=== PATIENT | male | born 1970 | race Caucasian/White ===

== ENCOUNTER 2018-03-06 09:34 | Inpatient (IN) ==
--- NOTE | 2018-03-06 09:42 | Emergency Department Note ---
Disposition Clinical Impression: Acute exacerbation of chronic obstructive airways disease Pneumonia Qualifiers: Pneumonia type: due to unspecified organism Laterality: right Lung location: lower lobe of lung Qualified Code(s): J18.1 - Lobar pneumonia, unspecified organism Disposition: Admitted As Inpatient Condition: Fair Referrals: Shaina Bridges DO [Primary Care Provider] - Forms: ED Satisfaction Letter Time of Disposition: 12:00 SOB HPI - General Chief Complaint: ED Shortness of Breath/Dyspnea Stated Complaint: CHICA,Flu like symptoms Time Seen by Provider: 03/06/18 09:42 Source: patient Mode of arrival: wheelchair Limitations: no limitations Nursing Notes Reviewed: Yes Vital Signs Reviewed: Yes - History of Present Illness Patient is a 47-year-old male with past medical history of COPD, currently takes Spiriva daily along with rescue inhalers and occasional nebulizer treatments. He states that for the past 2 weeks, he has had shortness of breath that is slowly worsening. Today, he had significantly worsening shortness of breath. He does not wear any home oxygen. Is not currently on any antibiotics or steroids. Denies any other chest pain, abdominal pain, nausea, vomiting. He does admit to subjective fevers but has not measured any fevers at home. Also admits to increased cough and sputum production. - Related Data Home Medications Medication Instructions Recorded Confirmed Albuterol Sulfate [Ventolin Hfa] 2 puff IH Q4-6H PRN 03/06/18 03/06/18 Budesonide/Formoterol 160/4.5 2 puff IH BIDR 03/06/18 03/06/18 [Symbicort 160/4.5] Guaifenesin [Mucinex] 600 mg PO Q12H PRN 03/06/18 03/06/18 Ipratropium/Albuterol Neb [Duoneb] 3 ml IH Q4-6H PRN 03/06/18 03/06/18 Nicotine Patch [Nicoderm] 1 patch TD DAILY 03/06/18 03/06/18 Tiotropium [Spiriva] 18 mcg IH DAILY 03/06/18 03/06/18 Allergies Allergy/AdvReac Type Severity Reaction Status Date / Time No Known Allergies Allergy Verified 03/06/18 12:33 All systems ED: reviewed and negative except as stated. Constitutional: Reports: fever (Subjective) Cardiovascular: Denies: chest pain Respiratory: Reports: cough, dyspnea, wheezes Gastrointestinal: Denies: abdominal pain, nausea, vomiting, diarrhea Genitourinary: Denies: urgency Integumentary: Denies: rash Neurological: Denies: headache, weakness, numbness, paresthesias Past Medical History - Past Medical History Attestation: Yes The following information was validated with the patient. Source: patient Medical history: Reports: COPD Psychiatric history: Reports: no psych history - Social History Smoking Status: Current every day smoker Smokeless Tobacco Status: No Alcohol use: Reports: occasionally Drug use: Reports: marijuana Physical Exam - General Limitations: no limitations General appearance: alert - Head Head exam: atraumatic, normocephalic, normal inspection - Eye Eye exam: Present: normal appearance, PERRL, EOMI - ENT ENT exam: normal exam, normal oropharynx, mucous membranes moist - Neck Neck exam: Present: normal inspection, full ROM, trachea midline - Chest Chest inspection: Present: normal inspection, symmetric chest wall rise - Respiratory Respiratory exam: Present: respiratory distress (mild ), wheezes (significant wheeze throughout), accessory muscle use - Cardiovascular Cardiovascular exam: Present: normal rhythm, tachycardia, normal heart sounds - Abdominal Exam Abdominal exam: Present: soft, Non-Tender. Absent: tenderness, distention, guarding, rebound, rigidity - Extremities Exam Extremities exam: Present: normal inspection, full ROM. Absent: tenderness, pedal edema - Neurological Exam Neurological exam: Present: alert, oriented X3 - Psychiatric Psychiatric exam: Present: normal affect, normal mood - Skin Skin exam: Present: warm, dry, intact, normal color Course Course Narrative: Patient was tachycardiac and satting 91% on room air. Usually does not wear any oxygen. He had mild respiratory distress with accessory muscle use, significant wheezing throughout. History and physical exam consistent with COPD exacerbation. No active chest pain at this time. We will give the patient prednisone and DuoNeb 3, also perform basic blood work and chest x-ray to assess for any pneumonia. 11:59 chest x-ray shows a possible right lower lobe pneumonia. Patient was given azithromycin. Patient was reevaluated. He is still labored, still requiring 2 L nasal cannula oxygen to keep saturation above 88%. We will admit the patient for further care at this time. Chest X-Ray 03/06/18 09:46 IMPRESSION: Probable trace right pleural effusion. There is patchy opacity in the right lung base either atelectasis or pneumonia. D/ / Wendy Cheek MD / Wendy Cheek MD Interpreting Provider: Wendy Cheek MD Vital Signs Temperature 97.7 F 03/06/18 09:38 Pulse Rate 116 03/06/18 09:38 Respiratory Rate 24 03/06/18 09:38 Blood Pressure 138/63 03/06/18 09:38 O2 Sat by Pulse Oximetry 91 03/06/18 09:38 Temperature 97.7 F 03/06/18 09:54 Pulse Rate 85 03/06/18 12:37 Respiratory Rate 18 03/06/18 12:37 Blood Pressure 136/85 03/06/18 12:37 O2 Sat by Pulse Oximetry 91 03/06/18 12:37 Oxygen Delivery Oxygen Delivery Nasal Cannula Shortness of Breath/Dyspnea - [facility] Narrative Medical decision making narrative: Patient was tachycardiac and satting 91% on room air. Usually does not wear any oxygen. He had mild respiratory distress with accessory muscle use, significant wheezing throughout. History and physical exam consistent with COPD exacerbation. No active chest pain at this time. We will give the patient prednisone and DuoNeb 3, also perform basic blood work and chest x-ray to assess for any pneumonia. 11:59 chest x-ray shows a possible right lower lobe pneumonia. Patient was given azithromycin. Patient was reevaluated. He is still labored, still requiring 2 L nasal cannula oxygen to keep saturation above 88%. We will admit the patient for further care at this time. - Medical Records Medical records reviewed: Yes I reviewed the patient's medical records. - Lab Data Lab results reviewed: Yes I reviewed the patient's lab results. Result diagrams: 03/06/18 10:03 03/06/18 10:03 Lab Results 03/06/18 03/06/18 Range/Units 10:03 10:03 WBC 14.9 H (4.3-11.1) K/mcL RBC 4.96 (4.19-5.50) M/mcL Hgb 14.8 (12.9-16.9) g/dL Hct 44.2 (37.5-50.1) % MCV 89.1 (83.0-100.0) fL MCH 29.8 (28.0-33.3) pg MCHC 33.5 (31.6-35.5) g/dL RDW 12.9 (11.5-14.5) % Plt Count 274 (140-400) K/mcL MPV 9.7 (9.4-12.4) fL Immature Gran % 0.3 (0-4) % Seg Neutrophils % 79.2 % Lymphocytes % 12.4 % Monocytes % 6.2 % Eosinophils % 1.6 % Basophils % 0.3 % Neutrophils # 11.8 H (1.6-8.9) K/mcL Lymphocytes # 1.9 (0.6-4.6) K/mcL Monocytes # 0.9 (0.0-1.3) K/mcL Eosinophils # 0.2 (0.0-0.6) K/mcL Basophils # 0.0 (0.0-0.2) K/mcL Sodium 138 (136-145) mEq/L Potassium 3.7 (3.5-5.1) mEq/L Chloride 98 (98-107) mEq/L Carbon Dioxide 33 H (23-29) mEq/L BUN 10 (6-20) mg/dL Creatinine 0.67 L (0.70-1.30) mg/dL Est GFR ( Amer) > 60 (> 60) Est GFR (Non-Af Amer) > 60 (> 60) BUN/Creatinine Ratio 15 (6-26) Glucose 155 H (70-105) mg/dL Calculated Osmolality 288 (280-300) Calcium 9.4 (8.6-10.3) mg/dL - Radiology Data Radiology results reviewed: Yes I reviewed the patient's radiology results. Chest X-Ray 03/06/18 09:46 IMPRESSION: Probable trace right pleural effusion. There is patchy opacity in the right lung base either atelectasis or pneumonia. D/ / Wendy Cheek MD / Wendy Cheek MD Interpreting Provider: Wendy Cheek MD - EKG Data EKG attestation: Yes I reviewed and interpreted this EKG. EKG results narrative: 03/06/2018 at 10:05. Normal sinus rhythm. Rate 87. PA 128. QRS 91. QTC 450. Left axis deviation. No acute ST elevation or depression. S.B.A.R. - S.B.A.R. Situation: Demographics, MOA Background: Presenting Complaint, Relevant PMH, Meds, & Allergies Assessment: Vital Signs, Course and respsone to treatment, Exam Concerns, Patient/Family Expectation, Pertinant Lab Results Recommendation: Barrier(s) to disposition, Recommendation based on pending studies, treatments, or consults S.B.A.R. Report Given to: Dr. Madrigal
[2018-03-06] MEDS ORDERED: predniSONE 20 MG TABLET PO ONE (09:47)
[2018-03-06] MEDS ORDERED: Ipratropium/Albuterol Neb 3 ML IH ONE (09:48)
[2018-03-06 10:15] LABS: Basophils % 0.3 %; Eosinophils # 0.2 K/mcL (0.0-0.6); Eosinophils % 1.6 %; Hematocrit 44.2 % (37.5-50.1); Hemoglobin 14.8 g/dL (12.9-16.9); Immature Granulocytes % 0.3 % (0-4); Lymphocytes # 1.9 K/mcL (0.6-4.6); Lymphocytes % 12.4 %; Mean Corpuscular HGB Conc 33.5 g/dL (31.6-35.5); Mean Corpuscular Hemoglobin 29.8 pg (28.0-33.3); Mean Corpuscular Volume 89.1 fL (83.0-100.0); Mean Platelet Volume 9.7 fL (9.4-12.4); Monocytes # 0.9 K/mcL (0.0-1.3); Monocytes % 6.2 %; Neutrophils # 11.8 K/mcL (1.6-8.9); Platelet Count 274 K/mcL (140-400); Red Blood Count 4.96 M/mcL (4.19-5.50); Red Cell Distribution Width 12.9 % (11.5-14.5); Segmented Neutrophils % 79.2 %
--- NOTE | 2018-03-06 10:25 | Emergency Department Note ---
Disposition Clinical Impression: Acute exacerbation of chronic obstructive airways disease Disposition: Still a Patient Forms: ED Satisfaction Letter General Adult HPI - General Chief complaint: ED Shortness of Breath/Dyspnea Stated complaint: CHICA,Flu like symptoms Time Seen by Provider: 03/06/18 09:42 Source: patient Mode of arrival: wheelchair Limitations: no limitations - History of Present Illness Pain Scale: 6 - Related Data Previous Rx's Medication Instructions Recorded Benzonatate [Tessalon] 200 mg PO TID PRN #15 capsule 03/15/16 Naproxen [EC-Naprosyn] 500 mg PO BID #10 tablet. 03/15/16 Allergies Allergy/AdvReac Type Severity Reaction Status Date / Time No Known Allergies Allergy Verified 03/15/16 16:54 Constitutional: Reports: fever (Subjective) Cardiovascular: Denies: chest pain Respiratory: Reports: cough, dyspnea, wheezes Gastrointestinal: Denies: abdominal pain, nausea, vomiting, diarrhea Genitourinary: Denies: urgency Integumentary: Denies: rash Neurological: Denies: headache, weakness, numbness, paresthesias Past Medical History - Past Medical History Medical history: Reports: COPD Psychiatric history: Reports: no psych history - Social History Smoking Status: Current every day smoker Smokeless Tobacco Status: No Alcohol use: Reports: occasionally Drug use: Reports: marijuana Physical Exam - General Limitations: no limitations General appearance: alert Course Vital Signs Temperature 97.7 F 03/06/18 09:38 Pulse Rate 116 03/06/18 09:38 Respiratory Rate 24 03/06/18 09:38 Blood Pressure 138/63 03/06/18 09:38 O2 Sat by Pulse Oximetry 91 03/06/18 09:38 Temperature 97.7 F 03/06/18 09:54 Pulse Rate 92 03/06/18 10:14 Respiratory Rate 24 03/06/18 10:14 Blood Pressure 139/85 03/06/18 10:14 O2 Sat by Pulse Oximetry 97 03/06/18 10:14 Oxygen Delivery Oxygen Delivery Nasal Cannula Attestation Statement - Attestation Attestation: I examined this patient and my medical decision-making was reviewed with the Resident Physician. I agree with the documented findings, disposition and treatment plan as described except to the extent set forth below. 47 year old male presnte to the eD with history of CoPD and states that he has been feeling flui like symptoms and more dyspniec. Trisha states that he does not wear supplemntal oxygen at home and that he has notied that hew as 90-91% on RA and appears dyspneic on exam while speaking. WE will do duonebs and steroids and obs in the deparnvne with cardiopulonary workup and the walk test to assess for disposition
[2018-03-06 10:34] LABS: BUN/Creatinine Ratio 15 (6-26); Blood Urea Nitrogen 10 mg/dL (6-20); Calcium 9.4 mg/dL (8.6-10.3); Carbon Dioxide 33 mEq/L (23-29); Chloride 98 mEq/L (98-107); Glucose 155 mg/dL (70-105); Osmolality,Calculated 288 (280-300); Potassium 3.7 mEq/L (3.5-5.1); Sodium 138 mEq/L (136-145); eGFR For African Americans > 60 (> 60); eGFR For Non-African Americans > 60 (> 60)
[2018-03-06] MEDS ORDERED: Azithromycin 500 MG in D5% in Water 250 ML IVPB ONE (11:48)
[2018-03-06] MEDS ORDERED: 0.9 % Sodium Chloride 1,000 ML IVC ONE (11:48)
[2018-03-06] MEDS ORDERED: Naloxone 0.4 MG/ML INJ IVP PRN (13:33)
[2018-03-06] MEDS ORDERED: Acetaminophen 325 MG TABLET PO PRN (13:33)
[2018-03-06] MEDS ORDERED: Benzonatate 100 MG CAPSULE PO PRN (13:43)
[2018-03-06] MEDS ORDERED: Ondansetron 4 MG/2 ML VIAL IVP PRN (14:14)
--- NOTE | 2018-03-06 14:14 | Internal Med History&Physical ---
<Vince Chi [place] - Last Filed: 03/06/18 15:01> Date of Encounter: 03/06/18 Time of Encounter: 12:30 Internal Medicine - H&P: HPI Chief complaint: SOB/Dyspnea Admitted From: Emergency Dept Plans for Post Hospital Care: Home History of present illness: Mr. Andino is a 47 year old male w/PMH of COPD who presents from the ED w/CC of SOB and dyspnea for the past two weeks that has become progressively worse. Pt. reports associated cough w/yellow/green sputum, fever, and diarrhea but denies nausea, vomiting, CP, changes in vision, headache, palpitations, abdominal pain , constipation, dizziness, lightheadedness, pre-syncope, or syncope. Significant COB that is worse w/exertion. Uses inhalers for COPD but denies use of home O2. Reports taking steroids in the past but denies current abx or steroids for his COPD. Past Med Surg Social Fam HX - Past Medical History Source: patient, old records reviewed, obtained from family Medical history: COPD Psychiatric history: no psych history - Social History Smoking Status: Current every day smoker Packs per day: 1/2 PPD Smokeless Tobacco Status: No Alcohol use: occasionally Drug use: marijuana Current living situation: Home Activity Level: Independent ambulation Recent Out of Country Travel Within the Last 8 Weeks: No Exposure or Possible Exposure to Illness During Travel: No - Family History Father Race: Family Member Ethnicity: Non- Living Status: (49) Age at : 49 Cause of : [place] Hx Family Cardiac Disorders: Yes ([place]) Hx Family Psychosocial Disorders: Yes (ETOH abuse) Mother Age: 73 Race: Family Member Ethnicity: Non- Living Status: Still Living Hx Family Cardiac Disorders: Yes (CVA x4) Hx Family Endocrine Disorder: Yes (DM) Hx Family Neurologic Disorders: Yes (CVA, Seizures) Brother Race: Family Member Ethnicity: Non- Living Status: Still Living Hx Family Medical Disorders: No Sister Race: Family Member Ethnicity: Non- Living Status: Still Living Hx Family Musculoskeletal Disorders: Yes (Carpal tunnel syndrome) Internal Medicine - H&P: Meds Albuterol Sulfate [Ventolin Hfa] 2 puff IH Q4-6H PRN 03/06/18 [History] Budesonide/Formoterol 160/4.5 [Symbicort 160/4.5] 2 puff IH BIDR 03/06/18 [ History] Guaifenesin [Mucinex] 600 mg PO Q12H PRN 03/06/18 [History] Ipratropium/Albuterol Neb [Duoneb] 3 ml IH Q4-6H PRN 03/06/18 [History] Nicotine Patch [Nicoderm] 1 patch TD DAILY 03/06/18 [History] Tiotropium [Spiriva] 18 mcg IH DAILY 03/06/18 [History] 3 Allergy/AdvReac Type Severity Reaction Status Date / Time No Known Allergies Allergy Verified 03/06/18 12:33 All Systems PM: A 10-system review of systems was performed and is negative for pertinent findings except as documented above in the HPI. - Constitutional Constitutional: as per HPI, fever(s), no chills, no night sweats - EENT Eyes: no change in vision, no discharge, no pain, no photophobia Ears: no ear discharge, no ear pain, no tinnitus Nose, mouth and throat: no dysphagia, no nasal discharge, no neck pain, no sore throat - Breasts Breasts: as per HPI - Cardiovascular Cardiovascular ROS IM: as per HPI, dyspnea, dyspnea on exertion, no chest pain, no diaphoresis, no lightheadedness, no palpitations, no syncope - Respiratory Respiratory: as per HPI, cough (W/yellow/green sputum production), dyspnea, dyspnea on exertion, wheezing, change in phlegm color, no excessive phlegm production - Gastrointestinal Gastrointestinal: as per HPI, diarrhea, no abdominal pain, no hematemesis, no hematochezia, no melena, no nausea, no vomiting - Genitourinary Genitourinary ROS male: as per HPI - Musculoskeletal Musculoskeletal ROS IM: no numbness, no tingling - Integumentary Integumentary IM: no rash, no unusual bruising - Neurological Neurological ROS: no confusion, no convulsions, no focal weakness, no numbness, no tingling, no tremor(s) - Psychiatric Psychiatric: as per HPI - Endocrine Endocrine IM: as per HPI - Hematologic/Lymphatic Hematologic/Lymphatic: no easy bruising - Allergic/Immunologic Allergic/Immunologic: as per HPI - Constitutional Vitals: Temp Pulse Resp BP Pulse Ox 98.9 F 99 18 132/86 93 03/06/18 13:48 03/06/18 13:48 03/06/18 13:48 03/06/18 13:48 03/06/18 13:48 General appearance: Present: cooperative, mild distress (Respiratory), A&O X 3, pleasant, underweight, answers questions appropriately - Head Head exam: Present: atraumatic, normocephalic - Eye Eye exam: Present: PERRL, conjuntiva pink, sclera anicteric Pupils: Present: PERRL - ENT ENT exam: Present: normal exam - Neck Neck exam general surgery: Present: normal inspection, supple, trachea midline. Absent: lymphadenopathy - Respiratory Respiratory exam: Present: accessory muscle use, decreased breath sounds, wheezes - Cardiovascular Cardiovascular exam: Present: RRR, +S1, +S2. Absent: diastolic murmur, gallop, rubs, systolic murmur - GI/Abdominal GI/Abdominal exam: Present: normal bowel sounds, soft, no peritoneal signs. Absent: distended, tenderness - Rectal Rectal exam: Present: deferred - Additional comments: exam deferred. - Extremities Exam Extremities exam: Present: warm, radial pulses palpable and symmetrical. Absent : calf tenderness, cyanotic, pedal edema - Back Exam Back exam: Present: normal inspection - Neurological Exam Neurological exam: Present: CN II-XII intact, oriented X3, no focal deficits. Absent: pronater drift, facial droop, speech deficit - Psychiatric Psychiatric exam: Present: normal affect, normal mood - Skin Skin exam: Present: dry, intact Internal Med - H&P Results - Labs CBC & Chem 7: 03/06/18 10:03 03/06/18 10:03 - EKG Data EKG shows normal: sinus rhythm - EKG Data Prior EKG available for review: yes EKG comments: 03/06/18 14:29 EKG dated 03/15/16 shows sinus rhythm with marked left axis deviation and possible right ventricular conduction delay. EKG dated 03/06/18 shows sinus rhythm with occasional supraventricular premature complexes, marked left axis deviation, possible right ventricular conduction delay. - Diagnostic Studies Chest x-ray Additional comments: Impressions Chest X-Ray 03/06/18 09:46 IMPRESSION: Probable trace right pleural effusion. There is patchy opacity in the right lung base either atelectasis or pneumonia. D/ / Wendy Cheek MD / Wendy Cheek MD Interpreting Provider: Wendy Cheek MD - Assessment and plan (1) Pneumonia Current Visit: Yes Status: Acute Assessment and plan: Acute CAP. Pt. denies any recent hospitalization. Reports feeling sick for two weeks and becoming progressively worse. Fever, cough w/yellow/green sputum, and diarrhea. WBC of 14.9 on admission. CXR today shows probable trace right pleural effusion. Patchy opacity in the right lung base either atelectasis or pneumonia. IVPB azithromycin 500 mg daily and ceftriaxone 2,000 mg daily for bronchitis and pneumonia infection coverage. Blood cultures 2. Sputum culture. Respiratory infection panel. Legionella and strep pneumoniae antigens ordered. DuoNeb's every 4 scheduled. Tessalon 200 mg 3 times a day for cough. Supplemental O2 with titration and SPO2 monitoring. Pt. discussed w/ Dr. Madrigal who agrees w/plan of care. Pt. is high risk for further morbidity and infection d/t current sepsis criteria, sx for two weeks, complication of acute exacerbation of COPD, and risk factor of current tobacco abuse. Inpatient. Qualifiers: Pneumonia type: due to unspecified organism Laterality: right Lung location: lower lobe of lung Qualified Code(s): J18.1 - Lobar pneumonia, unspecified organism (2) Sepsis Current Visit: Yes Status: Acute Assessment and plan: Acute sepsis criteria w/WBC of 14.9, HR of 92, RR of 24, and suspected pneumonia per CXR. Patient received 1 L 0.9 NS bolus in the ED to be continued with 100 mL's per hour. Lactic acid ordered. Blood cultures x2. Sputum culture ordered. Respiratory infection panel ordered. Legionella and strep pneumoniae antigens ordered. Tylenol 650 mg Q6HR PRN for fever/pain. IVPB azithromycin 500 mg daily with IVPB ceftriaxone 2,000 mg daily for infection coverage. Will adjust abx coverage based on culture and panel results. Monitor lactic acid and f/u labs. Qualifiers: Sepsis type: sepsis due to unspecified organism Qualified Code(s): A41.9 - Sepsis, unspecified organism (3) Acute exacerbation of chronic obstructive airways disease Current Visit: Yes Status: Acute Assessment and plan: Acute exacerbation of COPD. Hx of COPD. Current smoker who smokes 1/2 PPD. Pt. reports use of inhalers but denies home O2. Solu-Medrol 40 mg Q8. DuoNebs Q4HR scheduled. Supplemental O2 w/titration and SpO2 monitoring. IVPB azithromycin 500 mg daily for bronchitis infection coverage. (4) Cough Current Visit: Yes Status: Acute Assessment and plan: Acute cough for the past 2 weeks with yellow/green sputum production. Sputum culture ordered. CXR today indicative for pneumonia. Tessalon 200 mg 3 times a day for cough. IVPB azithromycin and ceftriaxone for infection coverage. Supplemental O2 with titration and SPO2 monitoring. DuoNebs Q4HR scheduled. (5) Hyperglycemia Current Visit: Yes Status: Acute Assessment and plan: Acute hyperglycemia w/BG of 155 on admission. Pt. denies DM hx or use of oral/ insulin. A1c in a.m. labs. Will monitor. (6) Tobacco abuse Current Visit: Yes Status: Chronic Assessment and plan: Hx of chronic tobacco abuse. Currently smokes 1/2 PPD. Will continue pts. 21 mg nicotine patch daily. (7) DVT prophylaxis Current Visit: Yes Status: Acute Assessment and plan: enox 40 mg SQ 0600 for DVT prophylaxis. Monitor pt. for signs of bleeding. (8) SARABJIT (obstructive sleep apnea) Current Visit: Yes Status: Chronic Assessment and plan: Hx of SARABJIT. CPAP ordered HS. - Time Spent With Patient Total time spent is greater than 50% in coordination of care (as documented) at patient's floor/unit and/or counseling patient: Greater than 35 minutes <Manuel Madrigal - Last Filed: 03/06/18 19:45> Date of Encounter: 03/06/18 Internal Medicine - H&P: HPI History of present illness: Mr. Andino is a 47 year old male All Systems PM: A 10-system review of systems was performed and is negative for pertinent findings except as documented above in the HPI. - Constitutional Vitals: Temp Pulse Resp BP Pulse Ox 98.3 F 80 16 124/77 96 03/06/18 18:58 03/06/18 18:58 03/06/18 18:58 03/06/18 18:58 03/06/18 18:58 Internal Med - H&P Results - Labs CBC & Chem 7: 03/06/18 10:03 03/06/18 10:03 - ABG Interpretation ABG results: 03/06/18 17:58 ABG pH 7.29 L ABG pCO2 78 H* ABG pO2 120 H ABG HCO3 37 H ABG Total CO2 40 H ABG O2 Saturation 98 ABG Base Excess 7 H - Attending Attestation Discussed with BRICE and agree with assessment and plan Continue IV antibiotics for community acquired pneumonia Patient with diffuse expiratory wheezing on exam so we will continue Solu- Medrol for COPD exacerbation - Assessment and plan (1) Acute exacerbation of chronic obstructive airways disease Current Visit: Yes Status: Acute (2) Pneumonia Current Visit: Yes Status: Acute Qualifiers: Pneumonia type: due to unspecified organism Laterality: right Lung location: lower lobe of lung Qualified Code(s): J18.1 - Lobar pneumonia, unspecified organism (3) DVT prophylaxis Current Visit: Yes Status: Acute (4) Hyperglycemia Current Visit: Yes Status: Acute (5) Tobacco abuse Current Visit: Yes Status: Chronic (6) Cough Current Visit: Yes Status: Acute (7) Sepsis Current Visit: Yes Status: Acute Qualifiers: Sepsis type: sepsis due to unspecified organism Qualified Code(s): A41.9 - Sepsis, unspecified organism (8) SARABJIT (obstructive sleep apnea) Current Visit: Yes Status: Chronic - Time Spent With Patient Total time spent is greater than 50% in coordination of care (as documented) at patient's floor/unit and/or counseling patient:
[2018-03-06] MEDS: 0.9 % Sodium Chloride 1,000 ML IVC SCH (14:31)
[2018-03-06] MEDS: Ipratropium/Albuterol Neb 3 ML IH SCH ×3 (15:37→23:39)
[2018-03-06 15:49] LABS: Parainfluenza Virus 3 ***DETECTED*** (Not Detect)
[2018-03-06 15:50] LABS: Adenovirus Not Detected (Not Detect); Bordetella Pertussis Not Detected (Not Detect); Chlamydophila pneumoniae Not Detected (Not Detect); Coronavirus 229E Not Detected (Not Detect); Coronavirus HKU1 Not Detected (Not Detect); Coronavirus NL63 Not Detected (Not Detect); Coronavirus OC43 Not Detected (Not Detect); Human Metapneumovirus Not Detected (Not Detect); Human Rhinovirus/Enterovirus Not Detected (Not Detect); Influenza A Subtype 2009 H1 Not Detected (Not Detect); Influenza A Untypeable Not Detected (Not Detect); Influenza B Not Detected (Not Detect); Mycoplasma pneumoniae Not Detected (Not Detect); Parainfluenza Virus 1 Not Detected (Not Detect); Parainfluenza Virus 2 Not Detected (Not Detect); Parainfluenza Virus 4 Not Detected (Not Detect); Respiratory Syncytial Virus Not Detected (Not Detect)
[2018-03-06] MEDS: Nicotine 21 MG PATCH.TD24 TD SCH (17:25)
[2018-03-06] MEDS: MethylPREDNISolone 40 MG/ML VIAL IVP SCH (17:25)
[2018-03-06] MEDS: cefTRIAXone 2,000 MG in Water for inj. (sterile) 20 ML 20 ML IVP SCH (17:25)
[2018-03-06 18:01] LABS: ABG Base Excess 7 mEq/L (-2 to 3); ABG HCO3 37 mEq/L (21-27); ABG Oxygen Saturation 98 % (95-98); ABG PCO2 78 mmHg (35-45); ABG PH 7.29 pH Units (7.32-7.45); ABG PO2 120 mmHg (85-104); ABG TCO2 40 mEq/L (20-26)
[2018-03-06] MEDS: Budesonide/Formoterol 160/4.5 MDI IH SCH (20:08)
[2018-03-06 23:03] LABS: Bilirubin,Urine Negative (Negative); Blood,Urine Negative (Negative); Clarity,Urine Clear (Clear); Color,Urine Yellow (Yellow); Glucose,Urine (UA) 250 mg/dL (Normal); Ketones,Urine Negative (Negative); Leukocyte Esterase,Urine Negative (Negative); Nitrite,Urine Negative (Negative); Protein,Urine Trace mg/dL (Neg-Trace); Specific Gravity,Urine 1.023 (1.010-1.025); Urobilinogen,Urine Normal (Normal)
[2018-03-06 23:06] LABS: Bacteria,Urine None Seen per hpf (None-Few); Hyaline Casts,Urine None Seen per lpf (None-Few); RBC,Urine 0-3 per hpf (0-3); Squamous Epithelial Cell,Urine Many per lpf (None-Few)
[2018-03-07] MEDS: MethylPREDNISolone 40 MG/ML VIAL IVP SCH ×3 (00:12→16:10)
[2018-03-07] MEDS: 0.9 % Sodium Chloride 1,000 ML IVC SCH ×3 (01:24→21:57)
[2018-03-07] MEDS: Ipratropium/Albuterol Neb 3 ML IH SCH ×6 (03:15→23:01)
[2018-03-07 05:54] LABS: Basophils % 0.1 %; Hematocrit 40.4 % (37.5-50.1); Immature Granulocytes % 0.8 % (0-4); Lymphocytes % 8.8 %; Mean Corpuscular HGB Conc 31.7 g/dL (31.6-35.5); Mean Corpuscular Hemoglobin 28.8 pg (28.0-33.3); Mean Corpuscular Volume 90.8 fL (83.0-100.0); Monocytes # 0.3 K/mcL (0.0-1.3); Monocytes % 2.6 %; Neutrophils # 9.5 K/mcL (1.6-8.9); Platelet Count 275 K/mcL (140-400); Red Blood Count 4.45 M/mcL (4.19-5.50); Segmented Neutrophils % 87.7 %
[2018-03-07 06:00] LABS: Hemoglobin 12.8 g/dL (12.9-16.9)
[2018-03-07] MEDS: *HR* Enoxaparin 40 MG/0.4 ML SYRINGE SQ SCH (06:01)
[2018-03-07 06:15] LABS: Alanine Aminotransferase 29 Units/L (7-52); Albumin 3.4 g/dL (3.5-5.7); Albumin/Globulin Ratio 1.3 (1.1-2.2); Alkaline Phosphatase 107 Units/L (34-104); Aspartate Amino Transferase 17 Units/L (13-39); BUN/Creatinine Ratio 16 (6-26); Bilirubin,Total 0.2 mg/dL (0.3-1.0); Blood Urea Nitrogen 10 mg/dL (6-20); Carbon Dioxide 32 mEq/L (23-29); Chloride 101 mEq/L (98-107); Chol/HDL Ratio 2.9 (0-4.9); Cholesterol 117 mg/dL (< 200); Globulin 2.7 g/dL (2.4-3.5); Glucose 168 mg/dL (70-105); HDL Cholesterol 41 mg/dL (40-59); LDL Cholesterol,Calculated 60 mg/dL (0-99); Magnesium 1.9 mg/dL (1.6-2.6); Osmolality,Calculated 287 (280-300); Potassium 4.4 mEq/L (3.5-5.1); Sodium 137 mEq/L (136-145); Total Protein 6.1 g/dL (6.4-8.9); Triglycerides 78 mg/dL (< 150); eGFR For African Americans > 60 (> 60); eGFR For Non-African Americans > 60 (> 60)
[2018-03-07] MEDS: Budesonide/Formoterol 160/4.5 MDI IH SCH ×2 (07:32→19:27)
[2018-03-07] MEDS: Tiotropium 18 MCG inhalation IH SCH (07:35)
[2018-03-07] MEDS ORDERED: Nicotine 21 MG PATCH.TD24 TD SCH (09:00)
[2018-03-07] MEDS: Nicotine 21 MG PATCH.TD24 TD SCH (09:51)
[2018-03-07] MEDS: Loratadine 10 MG TABLET PO SCH (12:09)
[2018-03-07 12:55] LABS: ABG Base Excess 9 mEq/L (-2 to 3); ABG HCO3 38 mEq/L (21-27); ABG Oxygen Saturation 96 % (95-98); ABG PCO2 73 mmHg (35-45); ABG PH 7.32 pH Units (7.32-7.45); ABG PO2 93 mmHg (85-104); ABG TCO2 40 mEq/L (20-26)
[2018-03-07] MEDS: Acetylcysteine 10% 2 ML INHSOL IH SCH ×3 (12:57→19:28)
[2018-03-07] MEDS: cefTRIAXone 2,000 MG in Water for inj. (sterile) 20 ML 20 ML IVP SCH (16:09)
--- NOTE | 2018-03-07 17:08 | Internal Med Progress Note ---
Date of Encounter: 03/07/18 Time of Encounter: 10:17 - Assessment and plan (1) Acute respiratory failure with hypercapnia Current Visit: Yes Status: Acute Assessment and plan: Continue Bipap for now. Repeat ABG. Treat COPD and pneumonia as per below. (2) Acute exacerbation of chronic obstructive airways disease Current Visit: Yes Status: Acute Assessment and plan: Acute exacerbation of COPD. Current smoker who smokes 1/2 PPD. Continue solumedrol 40 mg IV Q8H. Continue DuoNebs Q4H scheduled. Continue supplemental O2 w/titration and SpO2 monitoring. May use Bipap for hypercapnia. Continue IVPB azithromycin 500 mg QD and IV rocephin for pneumonia as per below. Added claritin, inhaled mucomyst, guaifenesin, incentive spirometer, and up to chair TID with turn cough and deep breath. Continue to monitor closely for any decompensation. (3) Pneumonia Current Visit: Yes Status: Acute Assessment and plan: Continue IV azithromycin and IV rocephin. Qualifiers: Pneumonia type: due to unspecified organism Laterality: right Lung location: lower lobe of lung Qualified Code(s): J18.1 - Lobar pneumonia, unspecified organism (4) DVT prophylaxis Current Visit: Yes Status: Acute Assessment and plan: Continue lovenox 40 mg SQ 0600 for DVT prophylaxis. (5) Hyperglycemia Current Visit: Yes Status: Acute Assessment and plan: Continue to monitor. (6) Tobacco abuse Current Visit: Yes Status: Chronic Assessment and plan: Counselled on smoking cessation for 5 minutes today. He is interested in quitting. Continue nicotine transdermal 21 mg QD. (7) Cough Current Visit: Yes Status: Acute Assessment and plan: Improved. Treating COPD and pneumonia as per above. (8) Sepsis Current Visit: Yes Status: Acute Assessment and plan: Resolved. Continue IV azithromycin and IV rocephin. Qualifiers: Sepsis type: sepsis due to unspecified organism Qualified Code(s): A41.9 - Sepsis, unspecified organism (9) SARABJIT (obstructive sleep apnea) Current Visit: Yes Status: Chronic Assessment and plan: Continue CPAP QHS. - Time Spent With Patient Total time spent is greater than 50% in coordination of care (as documented) at patient's floor/unit and/or counseling patient: less than 15 minutes - Subjective Interval history: Patient had no acute events overnight. Patient rounded on with nurse. Patient states that breathing is much better. He states that he is about 85% back to baseline respiratory status. He still has some cough and mucus production. He was on Bipap this AM for hypercapnia. He tolerated well. Will repeat ABG. We will continue to treat COPD exacerbation and suspected pneumonia. Patient denies chest pain, fever, chills, nausea, vomiting, or diarrhea. He has no complaints at this time. - Constitutional Vitals: Temp Pulse Resp BP Pulse Ox 98 F 79 16 143/81 99 03/07/18 16:14 03/07/18 16:14 03/07/18 16:18 03/07/18 16:14 03/07/18 16:18 General appearance: Present: cooperative, A&O X 3, pleasant, no acute distress, underweight, answers questions appropriately - Respiratory Respiratory exam: Absent: accessory muscle use, rales, rhonchi, wheezes Additional comments: Mildly labored WOB, coarse breath sounds bilaterally with intermittent expiratory wheezing - Cardiovascular Cardiovascular exam: Present: RRR, +S1, +S2. Absent: diastolic murmur, gallop, rubs, systolic murmur - GI/Abdominal GI/Abdominal exam: Present: normal bowel sounds, soft. Absent: distended, hepatomegaly, mass, splenomegaly, tenderness - Psychiatric Psychiatric exam: Present: normal affect, normal mood. Absent: agitated, anxious, depressed - Skin Skin exam: Present: dry, intact, warm. Absent: cyanosis, rash Internal Medicine: Result - Labs CBC & Chem 7: 03/07/18 05:14 03/07/18 05:14 Labs: Short CBC 03/07/18 Range/Units 05:14 WBC 10.9 (4.3-11.1) K/mcL Hgb 12.8 L D (12.9-16.9) g/dL Hct 40.4 (37.5-50.1) % Plt Count 275 (140-400) K/mcL Neutrophils # 9.5 H (1.6-8.9) K/mcL BMP 03/07/18 05:14 Sodium 137 Potassium 4.4 Chloride 101 Carbon Dioxide 32 H BUN 10 Creatinine 0.63 L Glucose 168 H Calcium 9.0 Liver Function 03/07/18 Range/Units 05:14 Total Bilirubin 0.2 L (0.3-1.0) mg/dL AST 17 (13-39) Units/L ALT 29 (7-52) Units/L Alkaline Phosphatase 107 H (34-104) Units/L Albumin 3.4 L (3.5-5.7) g/dL Urine 03/06/18 Range/Units 22:53 Urine Color Yellow (Yellow) Urine Clarity Clear (Clear) Urine pH 6.0 (5.0-8.0) pH Units Ur Specific Simon 1.023 (1.010-1.025) Urine Protein Trace (Neg-Trace) mg/dL Urine Glucose (UA) 250 H (Normal) mg/dL - ABG Interpretation ABG results: ABG ABG pH 7.32 pH Units (7.32-7.45) 03/07/18 12:42 ABG pCO2 73 mmHg (35-45) H* 03/07/18 12:42 ABG pO2 93 mmHg (85-104) 03/07/18 12:42 ABG O2 Saturation 96 % (95-98) 03/07/18 12:42 Consult Discharge Plan - Plan Referrals: Shaina Bridges DO [Primary Care Provider] -
[2018-03-08] MEDS ORDERED: Dextrose Gel 15 GM/37.5 ML TUBE PO PRN ×2 (00:02)
[2018-03-08] MEDS ORDERED: D5% in Water 1,000 ML IVC PRN (00:02)
[2018-03-08] MEDS ORDERED: *HR* Dextrose 50 % in Water (Syg) 50 ML SYRINGE IVP PRN (00:02)
[2018-03-08] MEDS: MethylPREDNISolone 40 MG/ML VIAL IVP SCH ×3 (00:41→16:10)
[2018-03-08] MEDS: Insulin LISPRO 300 UNITS/3 ML VIAL SQ SCH ×5 (00:41→23:50)
[2018-03-08] MEDS: Acetylcysteine 10% 2 ML INHSOL IH SCH ×4 (03:53→23:15)
[2018-03-08] MEDS: Ipratropium/Albuterol Neb 3 ML IH SCH ×6 (03:53→23:15)
[2018-03-08 05:03] LABS: Basophils % 0.1 %; Hematocrit 37.7 % (37.5-50.1); Hemoglobin 12.4 g/dL (12.9-16.9); Immature Granulocytes % 1.6 % (0-4); Lymphocytes # 1.1 K/mcL (0.6-4.6); Lymphocytes % 7.9 %; Mean Corpuscular HGB Conc 32.9 g/dL (31.6-35.5); Mean Corpuscular Hemoglobin 29.7 pg (28.0-33.3); Mean Corpuscular Volume 90.2 fL (83.0-100.0); Mean Platelet Volume 9.5 fL (9.4-12.4); Monocytes # 0.4 K/mcL (0.0-1.3); Monocytes % 2.7 %; Neutrophils # 12.3 K/mcL (1.6-8.9); Platelet Count 298 K/mcL (140-400); Red Blood Count 4.18 M/mcL (4.19-5.50); Red Cell Distribution Width 12.9 % (11.5-14.5); Segmented Neutrophils % 87.7 %
[2018-03-08 05:24] LABS: Alanine Aminotransferase 38 Units/L (7-52); Albumin 3.2 g/dL (3.5-5.7); Albumin/Globulin Ratio 1.2 (1.1-2.2); Alkaline Phosphatase 96 Units/L (34-104); Aspartate Amino Transferase 27 Units/L (13-39); BUN/Creatinine Ratio 17 (6-26); Bilirubin,Total 0.2 mg/dL (0.3-1.0); Blood Urea Nitrogen 12 mg/dL (6-20); Carbon Dioxide 32 mEq/L (23-29); Chloride 99 mEq/L (98-107); Globulin 2.7 g/dL (2.4-3.5); Glucose 171 mg/dL (70-105); Osmolality,Calculated 284 (280-300); Potassium 4.3 mEq/L (3.5-5.1); Sodium 135 mEq/L (136-145); Total Protein 5.9 g/dL (6.4-8.9); eGFR For African Americans > 60 (> 60); eGFR For Non-African Americans > 60 (> 60)
[2018-03-08] MEDS: *HR* Enoxaparin 40 MG/0.4 ML SYRINGE SQ SCH (06:09)
[2018-03-08] MEDS: Budesonide/Formoterol 160/4.5 MDI IH SCH ×2 (07:50→19:55)
[2018-03-08] MEDS: Tiotropium 18 MCG inhalation IH SCH (07:53)
[2018-03-08] MEDS: Nicotine 21 MG PATCH.TD24 TD SCH (09:35)
[2018-03-08] MEDS: Loratadine 10 MG TABLET PO SCH (09:36)
[2018-03-08 10:39] LABS: Estimated Average Glucose 143 mg/dl; Hemoglobin A1C 6.6 %
[2018-03-08 10:52] LABS: ABG Base Excess 11 mEq/L (-2 to 3); ABG HCO3 38 mEq/L (21-27); ABG Oxygen Saturation 97 % (95-98); ABG PCO2 61 mmHg (35-45); ABG PH 7.41 pH Units (7.32-7.45); ABG PO2 99 mmHg (85-104); ABG TCO2 40 mEq/L (20-26)
--- NOTE | 2018-03-08 13:13 | Electrocardiograph Report ---
[place] [address] Test Date: 2018-03-06 Pat Name: Kolton Andino Department: 103 Room: 3B37 Gender: M [employer]: : 1970 Requested By: Lg Live Order Number: [id number] Reading MD: Micah Hopper Measurements Intervals Bernice Rate: 87 P: 83 WY: 128 QRS: -71 QRSD: 91 T: 75 QT: 370 QTc: 415 Interpretive Statements SINUS RHYTHM WITH OCCASIONAL SUPRAVENTRICULAR PREMATURE COMPLEXES MARKED LEFT AXIS DEVIATION Electronically Signed On 03-08-2018 9:11:05 EDT by Micah Hopper
[2018-03-08] MEDS: cefTRIAXone 2,000 MG in Water for inj. (sterile) 20 ML 20 ML IVP SCH (16:08)
[2018-03-08] MEDS: 0.9 % Sodium Chloride 1,000 ML IVC SCH (16:11)
--- NOTE | 2018-03-08 23:51 | Internal Med Progress Note ---
Date of Encounter: 03/08/18 Time of Encounter: 10:47 - Assessment and plan (1) Acute respiratory failure with hypercapnia Current Visit: Yes Status: Acute Assessment and plan: CO2 improved on ABG today. Discontinue Bipap. Treat COPD and pneumonia as per below. (2) Acute exacerbation of chronic obstructive airways disease Current Visit: Yes Status: Acute Assessment and plan: Acute exacerbation of COPD. Current smoker who smokes 1/2 PPD. Counselled on smoking cessation again today. Continue solumedrol 40 mg IV Q8H; will consider starting taper tomorrow if continues to improve. Continue DuoNebs Q4H scheduled. Continue supplemental O2 w/titration and SpO2 monitoring. Continue IVPB azithromycin 500 mg QD and IV rocephin for pneumonia as per below. Continue claritin, inhaled mucomyst, guaifenesin, incentive spirometer, and up to chair TID with turn cough and deep breath. Continue to monitor closely for any decompensation. (3) Pneumonia Current Visit: Yes Status: Acute Assessment and plan: Continue IV azithromycin and IV rocephin. Qualifiers: Pneumonia type: due to unspecified organism Laterality: right Lung location: lower lobe of lung Qualified Code(s): J18.1 - Lobar pneumonia, unspecified organism (4) DVT prophylaxis Current Visit: Yes Status: Acute Assessment and plan: Continue lovenox 40 mg SQ 0600 for DVT prophylaxis. (5) Hyperglycemia Current Visit: Yes Status: Acute Assessment and plan: Secondary to steroids. Continue to monitor. (6) Tobacco abuse Current Visit: Yes Status: Chronic Assessment and plan: Counselled on smoking cessation for 5 minutes today. He is interested in quitting. Continue nicotine transdermal 21 mg QD. (7) Cough Current Visit: Yes Status: Acute Assessment and plan: Improved. Treating COPD and pneumonia as per above. (8) Sepsis Current Visit: Yes Status: Resolved Assessment and plan: Resolved. Continue IV azithromycin and IV rocephin. Qualifiers: Sepsis type: sepsis due to unspecified organism Qualified Code(s): A41.9 - Sepsis, unspecified organism (9) SARABJIT (obstructive sleep apnea) Current Visit: Yes Status: Chronic Assessment and plan: Continue CPAP QHS. - Time Spent With Patient Total time spent is greater than 50% in coordination of care (as documented) at patient's floor/unit and/or counseling patient: less than 15 minutes - Subjective Interval history: Patient had no acute events overnight. Patient states that breathing is much better. He thinks he is at his baseline, but based on my exam, I think he has some more room for improvement or else he will end up back in hospital. is in room today and we discussed plan of care. We are all in agreement. He still has some cough and mucus production. We will continue to treat COPD exacerbation and suspected pneumonia. Hypercapnia greatly improved on ABG today after using Bipap intermittently yesterday and at night. Patient denies chest pain, fever, chills, nausea, vomiting, or diarrhea. He has no complaints at this time. - Constitutional Vitals: Temp Pulse Resp BP Pulse Ox 98.0 F 76 16 143/76 97 03/08/18 23:27 03/08/18 23:27 03/08/18 23:27 03/08/18 23:27 03/08/18 23:27 General appearance: Present: cooperative, A&O X 3, pleasant, no acute distress, underweight, answers questions appropriately - Respiratory Respiratory exam: Absent: accessory muscle use, rales, rhonchi Additional comments: Mildly labored WOB, rare intermittent expiratory wheezing - Cardiovascular Cardiovascular exam: Present: RRR, +S1, +S2. Absent: diastolic murmur, gallop, rubs, systolic murmur Additional comments: No BLE edema - GI/Abdominal GI/Abdominal exam: Present: normal bowel sounds, soft. Absent: distended, hepatomegaly, mass, splenomegaly, tenderness - Psychiatric Psychiatric exam: Present: normal affect, normal mood. Absent: agitated, anxious, depressed - Skin Skin exam: Present: dry, intact, warm. Absent: cyanosis, rash Internal Medicine: Result - Labs CBC & Chem 7: 03/08/18 04:49 03/08/18 04:49 Labs: Short CBC 03/08/18 Range/Units 04:49 WBC 14.0 H (4.3-11.1) K/mcL Hgb 12.4 L (12.9-16.9) g/dL Hct 37.7 (37.5-50.1) % Plt Count 298 (140-400) K/mcL Neutrophils # 12.3 H (1.6-8.9) K/mcL BMP 03/08/18 04:49 Sodium 135 L Potassium 4.3 Chloride 99 Carbon Dioxide 32 H BUN 12 Creatinine 0.70 Glucose 171 H Calcium 9.0 Liver Function 03/08/18 Range/Units 04:49 Total Bilirubin 0.2 L (0.3-1.0) mg/dL AST 27 (13-39) Units/L ALT 38 (7-52) Units/L Alkaline Phosphatase 96 (34-104) Units/L Albumin 3.2 L (3.5-5.7) g/dL - ABG Interpretation ABG results: ABG ABG pH 7.41 pH Units (7.32-7.45) 03/08/18 10:49 ABG pCO2 61 mmHg (35-45) H 03/08/18 10:49 ABG pO2 99 mmHg (85-104) 03/08/18 10:49 ABG O2 Saturation 97 % (95-98) 03/08/18 10:49 Consult Discharge Plan - Plan Referrals: Shaina Bridges DO [Primary Care Provider] -
[2018-03-09] MEDS: MethylPREDNISolone 40 MG/ML VIAL IVP SCH ×4 (00:10→23:42)
[2018-03-09] MEDS: 0.9 % Sodium Chloride 1,000 ML IVC SCH ×3 (02:23→23:43)
[2018-03-09] MEDS: Acetylcysteine 10% 2 ML INHSOL IH SCH ×4 (04:53→20:25)
[2018-03-09] MEDS: Ipratropium/Albuterol Neb 3 ML IH SCH ×5 (04:53→20:25)
[2018-03-09 05:23] LABS: Basophils % 0.3 %; Hematocrit 37.9 % (37.5-50.1); Hemoglobin 12.7 g/dL (12.9-16.9); Immature Granulocytes % 2.8 % (0-4); Mean Corpuscular HGB Conc 33.5 g/dL (31.6-35.5); Mean Corpuscular Volume 89.4 fL (83.0-100.0); Mean Platelet Volume 9.5 fL (9.4-12.4); Monocytes # 0.5 K/mcL (0.0-1.3); Monocytes % 3.3 %; Neutrophils # 12.7 K/mcL (1.6-8.9); Platelet Count 317 K/mcL (140-400); Red Blood Count 4.24 M/mcL (4.19-5.50); Red Cell Distribution Width 12.8 % (11.5-14.5); Segmented Neutrophils % 86.6 %
[2018-03-09 05:45] LABS: Alanine Aminotransferase 41 Units/L (7-52); Albumin 3.1 g/dL (3.5-5.7); Albumin/Globulin Ratio 1.2 (1.1-2.2); Alkaline Phosphatase 89 Units/L (34-104); Aspartate Amino Transferase 22 Units/L (13-39); BUN/Creatinine Ratio 18 (6-26); Bilirubin,Total 0.2 mg/dL (0.3-1.0); Blood Urea Nitrogen 11 mg/dL (6-20); Calcium 9.1 mg/dL (8.6-10.3); Carbon Dioxide 32 mEq/L (23-29); Chloride 99 mEq/L (98-107); Globulin 2.5 g/dL (2.4-3.5); Glucose 161 mg/dL (70-105); Osmolality,Calculated 287 (280-300); Potassium 4.5 mEq/L (3.5-5.1); Sodium 137 mEq/L (136-145); Total Protein 5.6 g/dL (6.4-8.9); eGFR For African Americans > 60 (> 60); eGFR For Non-African Americans > 60 (> 60)
[2018-03-09] MEDS: Insulin LISPRO 300 UNITS/3 ML VIAL SQ SCH ×4 (05:48→23:45)
[2018-03-09] MEDS: *HR* Enoxaparin 40 MG/0.4 ML SYRINGE SQ SCH (05:48)
[2018-03-09] MEDS: Budesonide/Formoterol 160/4.5 MDI IH SCH ×2 (07:33→20:25)
[2018-03-09] MEDS: Tiotropium 18 MCG inhalation IH SCH (07:36)
[2018-03-09] MEDS: Loratadine 10 MG TABLET PO SCH (07:59)
[2018-03-09] MEDS: Nicotine 21 MG PATCH.TD24 TD SCH (08:00)
[2018-03-09] MEDS: cefTRIAXone 2,000 MG in Water for inj. (sterile) 20 ML 20 ML IVP SCH (15:43)
--- NOTE | 2018-03-09 16:01 | Internal Med Progress Note ---
Date of Encounter: 03/09/18 Time of Encounter: 16:01 - Assessment and plan (1) Pneumonia Current Visit: Yes Status: Acute Assessment and plan: Patient found to have pneumonia per CXR with right lower lobe opacity. Also has leukocytosis with a white count of 14.7. Respiratory status has improved since admission however, patient is continuing to have mild shortness of breath per my assessment. Lungs are clear/diminished bilaterally AP and L. He is mildly tachypneic otherwise, vital signs stable overall. Continue IV rocephin, and add IV azithromycin Continue bronchodilators and IV steroids Continuous telemetry and SPO2 monitoring CBC D and BMP in the morning Continue incentive spirometry, Claritin and Tessalon Perles Qualifiers: Pneumonia type: due to unspecified organism Laterality: right Lung location: lower lobe of lung Qualified Code(s): J18.1 - Lobar pneumonia, unspecified organism (2) Acute exacerbation of chronic obstructive airways disease Current Visit: Yes Status: Acute Assessment and plan: Presented to the ED with C/oh dyspnea has been progressing over the last 2 weeks. Was found to be having an acute exacerbation of COPD, additionally chest x-ray revealed a patchy opacity in the right lung base suspicious for pneumonia. Patient has history of COPD and is short of breath at baseline. However, he was not hypoxic on arrival. Respiratory status improved with Solu- Medrol, bronchodilators and O2 supplementation, continue these. Smoking cessation has been discussed with the patient today, he is a half pack day smoker. (3) Hyperglycemia Current Visit: Yes Status: Acute Assessment and plan: Secondary to steroids, Improving today continue to monitor. (4) Tobacco abuse Current Visit: Yes Status: Chronic Assessment and plan: Counselled on smoking cessation today, continue nicotine transdermal 21 mg patch daily (5) Cough Current Visit: Yes Status: Acute Assessment and plan: Improve, see further planning above (6) Sepsis Current Visit: Yes Status: Resolved Assessment and plan: Resolved, on ABX treatment Qualifiers: Sepsis type: sepsis due to unspecified organism Qualified Code(s): A41.9 - Sepsis, unspecified organism (7) SARABJIT (obstructive sleep apnea) Current Visit: Yes Status: Chronic Assessment and plan: Continue BiPAP when necessary (8) Acute respiratory failure with hypercapnia Current Visit: Yes Status: Resolved Assessment and plan: Resolved (9) DVT prophylaxis Current Visit: Yes Status: Acute Assessment and plan: Continue lovenox 40 mg SQ - Time Spent With Patient Total time spent is greater than 50% in coordination of care (as documented) at patient's floor/unit and/or counseling patient: 25 - 35 minutes - Subjective Interval history: seen and examined at bedside today. Reports no acute events overnight. Patient is reporting that his breathing is much better today and that he is able to ambulate around the room and feels like he is back at his baseline., However per my exam the patient still appears to be mildly short of breath and would benefit from an additional day stay. Patient is in agreement to this as well. Reporting that he still having mild intermittent cough with mucous production is improving. - Constitutional Vitals: Temp Pulse Resp BP Pulse Ox 97.8 F 89 15 155/90 94 03/09/18 15:50 03/09/18 15:50 03/09/18 15:50 03/09/18 15:50 03/09/18 15:50 General appearance: Present: cooperative, A&O X 3, pleasant, no acute distress, underweight, answers questions appropriately - Head Head exam: Present: atraumatic, normocephalic - Eye Eye exam: Present: PERRL, conjuntiva pink, sclera anicteric Pupils: Present: PERRL - Neck Neck exam general surgery: Present: supple, trachea midline. Absent: lymphadenopathy - Respiratory Respiratory exam: Present: CTAB. Absent: accessory muscle use, rales, rhonchi, wheezes - Cardiovascular Cardiovascular exam: Present: RRR, +S1, +S2. Absent: diastolic murmur, gallop, rubs, systolic murmur - GI/Abdominal GI/Abdominal exam: Present: normal bowel sounds, soft, no peritoneal signs. Absent: distended, tenderness - Extremities Exam Extremities exam: Present: warm, radial pulses palpable and symmetrical. Absent : calf tenderness, cyanotic, pedal edema - Neurological Exam Neurological exam: Present: CN II-XII intact, oriented X3, no focal deficits. Absent: pronater drift, facial droop, speech deficit - Skin Skin exam: Present: dry, intact Internal Medicine: Result - Labs CBC & Chem 7: 03/09/18 05:01 03/09/18 05:01 Labs: Short CBC 03/09/18 Range/Units 05:01 WBC 14.7 H (4.3-11.1) K/mcL Hgb 12.7 L (12.9-16.9) g/dL Hct 37.9 (37.5-50.1) % Plt Count 317 (140-400) K/mcL Neutrophils # 12.7 H (1.6-8.9) K/mcL BMP 03/09/18 05:01 Sodium 137 Potassium 4.5 Chloride 99 Carbon Dioxide 32 H BUN 11 Creatinine 0.60 L Glucose 161 H Calcium 9.1 Liver Function 03/09/18 Range/Units 05:01 Total Bilirubin 0.2 L (0.3-1.0) mg/dL AST 22 (13-39) Units/L ALT 41 (7-52) Units/L Alkaline Phosphatase 89 (34-104) Units/L Albumin 3.1 L (3.5-5.7) g/dL - ABG Interpretation ABG results: ABG ABG pH 7.41 pH Units (7.32-7.45) 03/08/18 10:49 ABG pCO2 61 mmHg (35-45) H 03/08/18 10:49 ABG pO2 99 mmHg (85-104) 03/08/18 10:49 ABG O2 Saturation 97 % (95-98) 03/08/18 10:49 Consult Discharge Plan - Plan Referrals: Shaina Bridges DO [Primary Care Provider] -
[2018-03-10] MEDS: Ipratropium/Albuterol Neb 3 ML IH SCH ×6 (00:06→20:24)
[2018-03-10] MEDS: Acetylcysteine 10% 2 ML INHSOL IH SCH ×4 (05:12→20:24)
[2018-03-10] MEDS: Insulin LISPRO 300 UNITS/3 ML VIAL SQ SCH ×3 (06:00→17:10)
[2018-03-10] MEDS: *HR* Enoxaparin 40 MG/0.4 ML SYRINGE SQ SCH (06:00)
[2018-03-10 06:10] LABS: Basophils # 0.1 K/mcL (0.0-0.2); Basophils % 0.3 %; Hematocrit 42.3 % (37.5-50.1); Immature Granulocytes % 2.6 % (0-4); Lymphocytes # 1.1 K/mcL (0.6-4.6); Lymphocytes % 6.8 %; Mean Corpuscular HGB Conc 33.1 g/dL (31.6-35.5); Mean Corpuscular Hemoglobin 29.2 pg (28.0-33.3); Mean Corpuscular Volume 88.1 fL (83.0-100.0); Mean Platelet Volume 9.6 fL (9.4-12.4); Monocytes # 0.7 K/mcL (0.0-1.3); Monocytes % 4.3 %; Neutrophils # 13.5 K/mcL (1.6-8.9); Platelet Count 361 K/mcL (140-400); Red Cell Distribution Width 12.8 % (11.5-14.5)
[2018-03-10 06:32] LABS: Alanine Aminotransferase 48 Units/L (7-52); Albumin 3.3 g/dL (3.5-5.7); Albumin/Globulin Ratio 1.3 (1.1-2.2); Alkaline Phosphatase 91 Units/L (34-104); Aspartate Amino Transferase 23 Units/L (13-39); BUN/Creatinine Ratio 21 (6-26); Bilirubin,Total 0.2 mg/dL (0.3-1.0); Blood Urea Nitrogen 15 mg/dL (6-20); Calcium 9.3 mg/dL (8.6-10.3); Carbon Dioxide 30 mEq/L (23-29); Chloride 100 mEq/L (98-107); Globulin 2.6 g/dL (2.4-3.5); Glucose 139 mg/dL (70-105); Osmolality,Calculated 291 (280-300); Potassium 4.8 mEq/L (3.5-5.1); Sodium 139 mEq/L (136-145); Total Protein 5.9 g/dL (6.4-8.9); eGFR For African Americans > 60 (> 60); eGFR For Non-African Americans > 60 (> 60)
[2018-03-10] MEDS: Budesonide/Formoterol 160/4.5 MDI IH SCH ×2 (07:49→20:24)
[2018-03-10] MEDS: Tiotropium 18 MCG inhalation IH SCH (07:50)
[2018-03-10] MEDS: Loratadine 10 MG TABLET PO SCH (08:09)
[2018-03-10] MEDS: MethylPREDNISolone 40 MG/ML VIAL IVP SCH ×2 (08:09→16:08)
[2018-03-10] MEDS: Nicotine 21 MG PATCH.TD24 TD SCH (08:10)
[2018-03-10] MEDS: 0.9 % Sodium Chloride 1,000 ML IVC SCH (10:02)
--- NOTE | 2018-03-10 14:47 | Internal Med Progress Note ---
Date of Encounter: 03/10/18 Time of Encounter: 14:46 - Assessment and plan (1) Pneumonia Current Visit: Yes Status: Acute Assessment and plan: Patient found to have a lower lobe pneumonia. White count 15.6 today. Clinically, his Respiratory status has improved since admission however, patient is continuing to have mild shortness of breath with ambulation. Also, hypoxia noted while walking in the hallway on pulse oximeter. Per auscultation his have expiratory wheezing throughout. Otherwise he continues to be slowly improving. Resting comfortably with no shortness of breath at rest on room air. Continues to endorse a nonproductive cough. Continue IV rocephin, and add IV azithromycin Continue bronchodilators and IV steroids Continuous telemetry and SPO2 monitoring CBC D and BMP in the morning Continue incentive spirometry, Claritin and Tessalon Perles Qualifiers: Pneumonia type: due to unspecified organism Laterality: right Lung location: lower lobe of lung Qualified Code(s): J18.1 - Lobar pneumonia, unspecified organism (2) Acute exacerbation of chronic obstructive airways disease Current Visit: Yes Status: Acute Assessment and plan: Presented to the ED with C/oh dyspnea has been progressing over the last 2 weeks. Was found to be having an acute exacerbation of COPD, also noted to have pneumonia in the right lung base. History of COPD and is short of breath at baseline, does not wear home O2. Patient still has expiratory wheezing throughout, Restoril status improving but still remains mildly short of breath with ambulation. The patient was ambulated in the hallway on a pulse oximeter and found to have hypoxia within 30 feet of ambulation, took more than 2 minutes for oxygen to recover. Patient would benefit from additional day stay. The patient more stable he will be sent home with home oxygen. Respiratory status improved with Solu-Medrol, bronchodilators and O2 supplementation, continue these education. (3) Hyperglycemia Current Visit: Yes Status: Acute Assessment and plan: Continues to have hyperglycemia secondary to steroids. continue to monitor. (4) Tobacco abuse Current Visit: Yes Status: Chronic Assessment and plan: Counselled on smoking cessation yesterday, she wishes to quit, continue nicotine transdermal 21 mg patch daily (5) Cough Current Visit: Yes Status: Acute Assessment and plan: Improving, see further planning above (6) Sepsis Current Visit: Yes Status: Resolved Assessment and plan: Resolved, on ABX treatment Qualifiers: Sepsis type: sepsis due to unspecified organism Qualified Code(s): A41.9 - Sepsis, unspecified organism (7) SARABJIT (obstructive sleep apnea) Current Visit: Yes Status: Chronic Assessment and plan: BiPAP when necessary (8) Acute respiratory failure with hypercapnia Current Visit: Yes Status: Resolved (9) DVT prophylaxis Current Visit: Yes Status: Acute Assessment and plan: Continue lovenox 40 mg SQ for DVT prophylaxis - Time Spent With Patient Total time spent is greater than 50% in coordination of care (as documented) at patient's floor/unit and/or counseling patient: - Subjective Interval history: Patient seen and examined at bedside today. Reports no acute events overnight. He reports that his breathing is continuing to improve however he is still dyspneic with ambulation. He continues to appear to be mildly short of breath and would benefit from an additional day stay. Patient is in agreement to this as well. Reporting that he still having mild intermittent cough with mucous production is improving. - Constitutional Vitals: Temp Pulse Resp BP Pulse Ox 97.7 F 77 17 151/78 95 03/10/18 14:10 03/10/18 14:10 03/10/18 14:10 03/10/18 14:10 03/10/18 14:10 General appearance: Present: cooperative, A&O X 3, pleasant, no acute distress, underweight, answers questions appropriately - Head Head exam: Present: atraumatic, normocephalic - Eye Eye exam: Present: PERRL, conjuntiva pink, sclera anicteric Pupils: Present: PERRL - Neck Neck exam general surgery: Present: supple, trachea midline. Absent: lymphadenopathy - Respiratory Respiratory exam: Present: decreased breath sounds, CTAB, prolonged expiratory phase, wheezes. Absent: accessory muscle use, rales, respiratory distress (no respiratory distress at rest. dyspnea with exertion), rhonchi - Cardiovascular Cardiovascular exam: Present: RRR, +S1, +S2. Absent: diastolic murmur, gallop, rubs, systolic murmur - GI/Abdominal GI/Abdominal exam: Present: normal bowel sounds, soft, no peritoneal signs. Absent: distended, tenderness - Extremities Exam Extremities exam: Present: warm, radial pulses palpable and symmetrical. Absent : calf tenderness, cyanotic, pedal edema - Neurological Exam Neurological exam: Present: CN II-XII intact, oriented X3, no focal deficits. Absent: pronater drift, facial droop, speech deficit - Skin Skin exam: Present: dry, intact Internal Medicine: Result - Labs CBC & Chem 7: 03/10/18 04:58 03/10/18 04:58 Labs: Short CBC 03/10/18 Range/Units 04:58 WBC 15.6 H (4.3-11.1) K/mcL Hgb 14.0 (12.9-16.9) g/dL Hct 42.3 (37.5-50.1) % Plt Count 361 (140-400) K/mcL Neutrophils # 13.5 H (1.6-8.9) K/mcL BMP 03/10/18 04:58 Sodium 139 Potassium 4.8 Chloride 100 Carbon Dioxide 30 H BUN 15 Creatinine 0.73 Glucose 139 H Calcium 9.3 Liver Function 03/10/18 Range/Units 04:58 Total Bilirubin 0.2 L (0.3-1.0) mg/dL AST 23 (13-39) Units/L ALT 48 (7-52) Units/L Alkaline Phosphatase 91 (34-104) Units/L Albumin 3.3 L (3.5-5.7) g/dL - ABG Interpretation ABG results: ABG ABG pH 7.41 pH Units (7.32-7.45) 03/08/18 10:49 ABG pCO2 61 mmHg (35-45) H 03/08/18 10:49 ABG pO2 99 mmHg (85-104) 03/08/18 10:49 ABG O2 Saturation 97 % (95-98) 03/08/18 10:49 Consult Discharge Plan - Plan Referrals: Shaina Bridges DO [Primary Care Provider] -
[2018-03-10] MEDS: cefTRIAXone 2,000 MG in Water for inj. (sterile) 20 ML 20 ML IVP SCH (16:08)
[2018-03-11] MEDS: 0.9 % Sodium Chloride 1,000 ML IVC SCH ×2 (00:15→17:42)
[2018-03-11] MEDS: Insulin LISPRO 300 UNITS/3 ML VIAL SQ SCH ×4 (00:15→16:50)
[2018-03-11] MEDS: MethylPREDNISolone 40 MG/ML VIAL IVP SCH ×2 (00:15→09:00)
[2018-03-11] MEDS: Ipratropium/Albuterol Neb 3 ML IH SCH ×7 (00:32→23:33)
[2018-03-11] MEDS: Acetylcysteine 10% 2 ML INHSOL IH SCH ×4 (04:15→20:28)
[2018-03-11 06:02] LABS: Basophils # 0.1 K/mcL (0.0-0.2); Basophils % 0.4 %; Hematocrit 42.1 % (37.5-50.1); Lymphocytes # 1.1 K/mcL (0.6-4.6); Lymphocytes % 6.5 %; Mean Corpuscular HGB Conc 33.3 g/dL (31.6-35.5); Mean Corpuscular Hemoglobin 29.5 pg (28.0-33.3); Mean Corpuscular Volume 88.8 fL (83.0-100.0); Mean Platelet Volume 9.9 fL (9.4-12.4); Monocytes # 0.9 K/mcL (0.0-1.3); Monocytes % 5.4 %; Platelet Count 369 K/mcL (140-400); Red Blood Count 4.74 M/mcL (4.19-5.50); Red Cell Distribution Width 12.9 % (11.5-14.5); Segmented Neutrophils % 84.7 %
[2018-03-11] MEDS: *HR* Enoxaparin 40 MG/0.4 ML SYRINGE SQ SCH (06:02)
[2018-03-11 06:25] LABS: Alanine Aminotransferase 47 Units/L (7-52); Albumin 3.2 g/dL (3.5-5.7); Albumin/Globulin Ratio 1.2 (1.1-2.2); Alkaline Phosphatase 80 Units/L (34-104); Aspartate Amino Transferase 20 Units/L (13-39); BUN/Creatinine Ratio 26 (6-26); Bilirubin,Total 0.2 mg/dL (0.3-1.0); Blood Urea Nitrogen 17 mg/dL (6-20); Carbon Dioxide 32 mEq/L (23-29); Chloride 98 mEq/L (98-107); Globulin 2.6 g/dL (2.4-3.5); Glucose 177 mg/dL (70-105); Osmolality,Calculated 284 (280-300); Potassium 4.5 mEq/L (3.5-5.1); Sodium 134 mEq/L (136-145); Total Protein 5.8 g/dL (6.4-8.9); eGFR For African Americans > 60 (> 60); eGFR For Non-African Americans > 60 (> 60)
[2018-03-11] MEDS: Budesonide/Formoterol 160/4.5 MDI IH SCH ×2 (07:51→20:28)
[2018-03-11] MEDS: Tiotropium 18 MCG inhalation IH SCH (08:07)
[2018-03-11] MEDS: Loratadine 10 MG TABLET PO SCH (09:00)
[2018-03-11] MEDS: Nicotine 21 MG PATCH.TD24 TD SCH (09:00)
--- NOTE | 2018-03-11 15:39 | Discharge Summary ---
Orders not resulted at time of discharge: Pending orders 03/12/18 04:00 Basic Metabolic Panel AM 0400 Complete Blood Count [HEME] AM 0400 03/13/18 04:00 Basic Metabolic Panel AM 0400 Complete Blood Count [HEME] AM 0400 03/14/18 04:00 Basic Metabolic Panel AM 0400 Complete Blood Count [HEME] AM 0400 Date of Encounter: 03/11/18 Time of Encounter: 15:36 - Discharge Diagnosis (1) Pneumonia Status: Acute Qualifiers: Pneumonia type: due to unspecified organism Laterality: right Lung location: lower lobe of lung Qualified Code(s): J18.1 - Lobar pneumonia, unspecified organism (2) Acute exacerbation of chronic obstructive airways disease Status: Acute (3) Hyperglycemia Status: Acute (4) Tobacco abuse Status: Chronic (5) Cough Status: Acute (6) Sepsis Status: Resolved Qualifiers: Sepsis type: sepsis due to unspecified organism Qualified Code(s): A41.9 - Sepsis, unspecified organism (7) SARABJIT (obstructive sleep apnea) Status: Chronic (8) Acute respiratory failure with hypercapnia Status: Resolved (9) DVT prophylaxis Status: Acute Hospital course: Mr. Andino is a 47 year old male - Time Spent with Patient Total time spent providing and/or coordinating discharge services: - Discharge Medications Home Medications: Albuterol Sulfate [Ventolin Hfa] 2 puff IH Q4-6H PRN 03/06/18 [History] Budesonide/Formoterol 160/4.5 [Symbicort 160/4.5] 2 puff IH BIDR 03/06/18 [ History] Guaifenesin [Mucinex] 600 mg PO Q12H PRN 03/06/18 [History] Ipratropium/Albuterol Neb [Duoneb] 3 ml IH Q4-6H PRN 03/06/18 [History] Nicotine Patch [Nicoderm] 1 patch TD DAILY 03/06/18 [History] Tiotropium [Spiriva] 18 mcg IH DAILY 03/06/18 [History] Allergies/Adverse Reactions: 3 Allergy/AdvReac Type Severity Reaction Status Date / Time No Known Allergies Allergy Verified 03/06/18 12:33 Date of admission: 03/06/18 13:33 Primary care physician: Kei Renteria - Constitutional Vitals: Temp Pulse Resp BP Pulse Ox 97.6 F 77 16 152/90 99 03/11/18 15:28 03/11/18 15:28 03/11/18 15:28 03/11/18 15:28 03/11/18 15:28 General appearance: Present: cooperative, A&O X 3, pleasant, no acute distress, underweight, answers questions appropriately - Patient Status Condition: Fair - Discharge Instructions Follow Up With: Shaina Bridges, [Primary Care Provider] -
--- NOTE | 2018-03-11 16:02 | Internal Med Progress Note ---
Date of Encounter: 03/11/18 Time of Encounter: 15:59 - Assessment and plan (1) Pneumonia Current Visit: Yes Status: Acute Assessment and plan: Patient found to have a lower lobe pneumonia. White count 16.6 today. Clinically, his Respiratory status has improved since admission however, patient is continuing to have mild shortness of breath with ambulation. Hypoxia with SPO2 dropping to 85% with ambulation and approximately 20-30 feet. Continuing to have expiratory wheezing throughout and prolonged expiratory phase. Per auscultation his have expiratory wheezing throughout. Otherwise he continues to be slowly improving. Resting comfortably with no shortness of breath at rest on room air. Continues to endorse a nonproductive cough. Continuing to have hypoxia with minimal exertion history of severe COPD. Patient will need to be qualified for home oxygen. Due to her decrease in functional capacity secondary to hypoxia with activity the patient also likely benefit from home health. fitness services manager working on oxygen qualification and home health set up. Continue azithromycin by mouth Continue bronchodilators, IV steroids changed to oral steroids today Continuous telemetry and SPO2 monitoring CBC D and BMP in the morning Continue incentive spirometry, Claritin and Tessalon Perles Qualifiers: Pneumonia type: due to unspecified organism Laterality: right Lung location: lower lobe of lung Qualified Code(s): J18.1 - Lobar pneumonia, unspecified organism (2) Acute exacerbation of chronic obstructive airways disease Current Visit: Yes Status: Acute Assessment and plan: Admitted with COPD exacerbation Wheezing and shortness of breath Continues to have expiratory wheezing throughout Continues to be short of breath and hypoxic with activity; has not progressed back to baseline See further assessment and planning above (3) Hyperglycemia Current Visit: Yes Status: Acute Assessment and plan: secondary to steroids, no history of diabetes. continue to monitor. (4) Tobacco abuse Current Visit: Yes Status: Chronic Assessment and plan: Counselled on smoking cessation yesterday, he wishes to quit, continue nicotine transdermal 21 mg patch daily offer nicotine patch on discharge (5) Cough Current Visit: Yes Status: Acute Assessment and plan: Improving, see further planning above (6) Sepsis Current Visit: Yes Status: Resolved Assessment and plan: Resolved, on ABX treatment Qualifiers: Sepsis type: sepsis due to unspecified organism Qualified Code(s): A41.9 - Sepsis, unspecified organism (7) SARABJIT (obstructive sleep apnea) Current Visit: Yes Status: Chronic Assessment and plan: BiPAP when necessary (8) Acute respiratory failure with hypercapnia Current Visit: Yes Status: Resolved Assessment and plan: Resolved (9) DVT prophylaxis Current Visit: Yes Status: Acute Assessment and plan: Continue lovenox 40 mg SQ for DVT prophylaxis - Time Spent With Patient Total time spent is greater than 50% in coordination of care (as documented) at patient's floor/unit and/or counseling patient: Greater than 35 minutes - Subjective Interval history: Patient seen and examined at bedside today. Reports no acute events overnight. He reports that his breathing is continuing to improve however he is still dyspneic with ambulation. He continues to appear to be mildly short of breath, qualifies for home O2 with spo2 of 85% with ambulation. Would benefit from home health aid, patient in agrees. Qualify for home health today and expect discharge in the am. Patient is in agreement to this as well. Reporting that he still having mild intermittent cough with mucous production is improving. - Constitutional Vitals: Temp Pulse Resp BP Pulse Ox 97.6 F 77 16 152/90 99 03/11/18 15:28 03/11/18 15:28 03/11/18 15:28 03/11/18 15:28 03/11/18 15:28 General appearance: Present: cooperative, A&O X 3, pleasant, no acute distress, underweight, answers questions appropriately - Head Head exam: Present: atraumatic, normocephalic - Eye Eye exam: Present: PERRL, conjuntiva pink, sclera anicteric Pupils: Present: PERRL - Neck Neck exam general surgery: Present: supple, trachea midline. Absent: lymphadenopathy - Respiratory Respiratory exam: Present: decreased breath sounds, CTAB, prolonged expiratory phase, wheezes. Absent: accessory muscle use, rales - Cardiovascular Cardiovascular exam: Present: RRR, +S1, +S2. Absent: diastolic murmur, gallop, rubs, systolic murmur - GI/Abdominal GI/Abdominal exam: Present: normal bowel sounds, soft, no peritoneal signs. Absent: distended, tenderness - Extremities Exam Extremities exam: Present: warm, radial pulses palpable and symmetrical. Absent : calf tenderness, cyanotic, pedal edema - Neurological Exam Neurological exam: Present: CN II-XII intact, oriented X3, no focal deficits. Absent: pronater drift, facial droop, speech deficit - Skin Skin exam: Present: dry, intact Internal Medicine: Result - Labs CBC & Chem 7: 03/11/18 04:26 03/11/18 04:26 Labs: Short CBC 03/11/18 Range/Units 04:26 WBC 16.6 H (4.3-11.1) K/mcL Hgb 14.0 (12.9-16.9) g/dL Hct 42.1 (37.5-50.1) % Plt Count 369 (140-400) K/mcL Neutrophils # 14.0 H (1.6-8.9) K/mcL BMP 03/11/18 04:26 Sodium 134 L Potassium 4.5 Chloride 98 Carbon Dioxide 32 H BUN 17 Creatinine 0.66 L Glucose 177 H Calcium 9.0 Liver Function 03/11/18 Range/Units 04:26 Total Bilirubin 0.2 L (0.3-1.0) mg/dL AST 20 (13-39) Units/L ALT 47 (7-52) Units/L Alkaline Phosphatase 80 (34-104) Units/L Albumin 3.2 L (3.5-5.7) g/dL - ABG Interpretation ABG results: ABG ABG pH 7.41 pH Units (7.32-7.45) 03/08/18 10:49 ABG pCO2 61 mmHg (35-45) H 03/08/18 10:49 ABG pO2 99 mmHg (85-104) 03/08/18 10:49 ABG O2 Saturation 97 % (95-98) 03/08/18 10:49 Consult Discharge Plan - Plan Referrals: Shaina Bridges DO [Primary Care Provider] -
[2018-03-11] MEDS: Azithromycin 250 MG TABLET PO SCH (16:50)
[2018-03-11] MEDS: cefTRIAXone 2,000 MG in Water for inj. (sterile) 20 ML 20 ML IVP SCH (17:00)
[2018-03-12] MEDS: Insulin LISPRO 300 UNITS/3 ML VIAL SQ SCH ×2 (00:31→05:50)
[2018-03-12] MEDS: Ipratropium/Albuterol Neb 3 ML IH SCH ×3 (04:51→11:51)
[2018-03-12] MEDS: Acetylcysteine 10% 2 ML INHSOL IH SCH ×2 (04:51→11:51)
[2018-03-12] MEDS: *HR* Enoxaparin 40 MG/0.4 ML SYRINGE SQ SCH (05:12)
[2018-03-12 06:34] LABS: Basophils # 0.2 K/mcL (0.0-0.2); Basophils % 0.8 %; Eosinophils # 0.1 K/mcL (0.0-0.6); Eosinophils % 0.4 %; Hematocrit 45.3 % (37.5-50.1); Immature Granulocytes % 4.1 % (0-4); Lymphocytes % 15.6 %; Mean Corpuscular HGB Conc 33.1 g/dL (31.6-35.5); Mean Corpuscular Hemoglobin 29.1 pg (28.0-33.3); Mean Platelet Volume 9.4 fL (9.4-12.4); Monocytes # 1.8 K/mcL (0.0-1.3); Monocytes % 9.5 %; Neutrophils # 13.2 K/mcL (1.6-8.9); Platelet Count 373 K/mcL (140-400); Red Blood Count 5.15 M/mcL (4.19-5.50); Red Cell Distribution Width 13.2 % (11.5-14.5); Segmented Neutrophils % 69.6 %
[2018-03-12 06:59] LABS: BUN/Creatinine Ratio 29 (6-26); Blood Urea Nitrogen 22 mg/dL (6-20); Carbon Dioxide 28 mEq/L (23-29); Chloride 99 mEq/L (98-107); Glucose 107 mg/dL (70-105); Osmolality,Calculated 288 (280-300); Potassium 4.4 mEq/L (3.5-5.1); Sodium 137 mEq/L (136-145); eGFR For African Americans > 60 (> 60); eGFR For Non-African Americans > 60 (> 60)
[2018-03-12 07:39] VITALS: BP 124/79
[2018-03-12] MEDS: Budesonide/Formoterol 160/4.5 MDI IH SCH (08:09)
[2018-03-12] MEDS: Tiotropium 18 MCG inhalation IH SCH (08:11)
[2018-03-12] MEDS ORDERED: predniSONE 20 MG TABLET PO SCH (09:00)
[2018-03-12] MEDS: Loratadine 10 MG TABLET PO SCH (09:08)
[2018-03-12] MEDS: Nicotine 21 MG PATCH.TD24 TD SCH (09:09)
[2018-03-12] MEDS: Azithromycin 250 MG TABLET PO SCH (09:09)
--- NOTE | 2018-03-12 09:18 | Discharge Summary ---
- NOTES TO OUTPATIENT PROVIDER Notes to Outpatient Provider: Patient admitted and treated for pneumonia. Uneventful hospital course, a status the been progressively improving. Initially, patient required O2 support but is now on room air. Still short of breath with exertion, hypoxia noted. Qualified for home O2, given prescription for home O2. Patient offered home health but declined. Informed to follow-up with PCP in one week of discharge. Orders not resulted at time of discharge: Pending orders 03/13/18 04:00 Basic Metabolic Panel AM 0400 Complete Blood Count [HEME] AM 0400 03/14/18 04:00 Basic Metabolic Panel AM 0400 Complete Blood Count [HEME] AM 0400 Date of Encounter: 03/12/18 Time of Encounter: 09:12 - Discharge Diagnosis (1) Pneumonia Priority: Primary Status: Acute Assessment and Plan: Patient found to have a lower lobe community-acquired pneumonia in the setting of an acute COPD exacerbation. White count 19.0 today WBC of 19 likely caused by steroids. Clinically, his Respiratory status has continued to improve since admission however. He is noted to have baseline COPD requiring home oxygen, reporting that at his baseline functional capacity is able to ambulate approximately 30 feet before he becomes hypoxic. He was ambulated on portable pulse oximetry and found to be hypoxic with ambulation at approximately 20-30 feet. Patient's SPO2 return to normal with 10-15 seconds of rest. Patient able to ambulate with oxygen with improvement in shortness of breath. Qualified for home O2 and will be sent home with home O2. Patient is offered home health but denied. Per my assessment today the patient has fine expiratory wheezes throughout which is an improvement from yesterday's assessment. He is in no respiratory distress and resting comfortably on room air at 98%. The patient is anxious for discharge reporting he would like to go home today. I have relayed to the patient that I think he would benefit from an additional days stay but that he is improving and we will discharge today. The patient has been informed that should respiratory status worsen he should return to the ED. Additionally, he has been informed that he needs to follow up with his primary care provider within one week of discharge. The patient will be sent home on oral azithromycin and an oral steroid burst. The patient reports that he has a rescue inhaler, Symbicort and nebulizers at home and uses them when needed. Additionally, he already has an oxygen concentrator set up for nighttime oxygen use and reports that he will use this as well. He has been instructed to continue incentive spirometry upon discharge. Additionally, the patient has been instructed to stop smoking. Risks and benefits of smoking explained, denies any further questions. He will be given a prescription for nicotine patch upon discharge. Qualifiers: Pneumonia type: due to unspecified organism Laterality: right Lung location: lower lobe of lung Qualified Code(s): J18.1 - Lobar pneumonia, unspecified organism (2) Leukocytosis, unspecified Priority: Secondary Status: Acute Assessment and Plan: Continues to have leukocytosis, WBC 19 today; patient has been on IV steroids now on oral steroids and most likely the cause No bandemia noted, patient has been continuing to improve clinically, resting comfortably on room air at 98% without any respiratory distress Qualifiers: Leukocytosis type: unspecified Qualified Code(s): D72.829 - Elevated white blood cell count, unspecified (3) Acute exacerbation of chronic obstructive airways disease Priority: Secondary Status: Acute Assessment and Plan: Admitted with COPD exacerbation Wheezing and shortness of breath Continues to have expiratory wheezing throughout Continues to be short of breath and hypoxic with activity; has not progressed back to baseline See further assessment and planning above (4) Hyperglycemia Priority: Secondary Status: Acute Assessment and Plan: secondary to steroids, no history of diabetes. continue to monitor. (5) Tobacco abuse Priority: Secondary Status: Chronic Assessment and Plan: Counselled on smoking cessation yesterday, he wishes to quit, continue nicotine transdermal 21 mg patch daily offer nicotine patch on discharge (6) Cough Priority: Secondary Status: Acute Assessment and Plan: Improving, see further planning above (7) Sepsis Priority: Secondary Status: Resolved Assessment and Plan: Resolved, on ABX treatment Qualifiers: Sepsis type: sepsis due to unspecified organism Qualified Code(s): A41.9 - Sepsis, unspecified organism (8) SARABJIT (obstructive sleep apnea) Priority: Secondary Status: Chronic Assessment and Plan: BiPAP when necessary (9) Acute respiratory failure with hypercapnia Priority: Secondary Status: Resolved Assessment and Plan: Resolved (10) DVT prophylaxis Priority: Secondary Status: Acute Hospital course: Mr. Andino is a 47 year old male Patient found to have a lower lobe community-acquired pneumonia in the setting of an acute COPD exacerbation. White count 19.0 today WBC of 19 likely caused by steroids. Clinically, his Respiratory status has continued to improve since admission however. He is noted to have baseline COPD requiring home oxygen, reporting that at his baseline functional capacity is able to ambulate approximately 30 feet before he becomes hypoxic. He was ambulated on portable pulse oximetry and found to be hypoxic with ambulation at approximately 20-30 feet. Patient's SPO2 return to normal with 10-15 seconds of rest. Patient able to ambulate with oxygen with improvement in shortness of breath. Qualified for home O2 and will be sent home with home O2. Patient is offered home health but denied. Per my assessment today the patient has fine expiratory wheezes throughout which is an improvement from yesterday's assessment. He is in no respiratory distress and resting comfortably on room air at 98%. The patient is anxious for discharge reporting he would like to go home today. I have relayed to the patient that I think he would benefit from an additional days stay but that he is improving and we will discharge today. The patient has been informed that should respiratory status worsen he should return to the ED. Additionally, he has been informed that he needs to follow up with his primary care provider within one week of discharge. The patient will be sent home on oral azithromycin and an oral steroid burst. The patient reports that he has a rescue inhaler, Symbicort and nebulizers at home and uses them when needed. Additionally, he already has an oxygen concentrator set up for nighttime oxygen use and reports that he will use this as well. He has been instructed to continue incentive spirometry upon discharge. Additionally, the patient has been instructed to stop smoking. Risks and benefits of smoking explained, denies any further questions. He will be given a prescription for nicotine patch upon discharge. Discharge discussed with: patient, nurse, case management Time spent discussing smoking cessation with patient: more than 10 minutes - Time Spent with Patient Total time spent providing and/or coordinating discharge services: Greater than 30 minutes - Discharge Medications Prescriptions: Azithromycin [Zithromax] 500 mg PO DAILY 4 Days #4 tablet Nicotine Patch [Nicoderm] 21 mg TD DAILY #30 patch.[id number] predniSONE [PredniSONE] 50 mg PO DAILY 5 Days #5 tablet Home Medications: Albuterol Sulfate [Ventolin Hfa] 2 puff IH Q4-6H PRN 03/06/18 [History] Budesonide/Formoterol 160/4.5 [Symbicort 160/4.5] 2 puff IH BIDR 03/06/18 [ History] Guaifenesin [Mucinex] 600 mg PO Q12H PRN 03/06/18 [History] Ipratropium/Albuterol Neb [Duoneb] 3 ml IH Q4-6H PRN 03/06/18 [History] Nicotine Patch [Nicoderm] 1 patch TD DAILY 03/06/18 [History] Tiotropium [Spiriva] 18 mcg IH DAILY 03/06/18 [History] Azithromycin [Zithromax] 500 mg PO DAILY 4 Days #4 tablet 03/12/18 [Rx] Nicotine Patch [Nicoderm] 21 mg TD DAILY #30 patch.[id number] 03/12/18 [Rx] predniSONE [PredniSONE] 50 mg PO DAILY 5 Days #5 tablet 03/12/18 [Rx] Allergies/Adverse Reactions: 3 Allergy/AdvReac Type Severity Reaction Status Date / Time No Known Allergies Allergy Verified 03/06/18 12:33 Date of admission: 03/06/18 13:33 Primary care physician: Kei Renteria Discharging clinician: Harinder Gordon Anticipated date of discharge: 03/12/18 - Constitutional Vitals: Temp Pulse Resp BP Pulse Ox 98.2 F 75 16 124/79 97 03/12/18 07:35 03/12/18 07:35 03/12/18 08:09 03/12/18 07:35 03/12/18 08:09 General appearance: Present: cooperative, A&O X 3, pleasant, no acute distress, underweight, answers questions appropriately - Head Head exam: Present: atraumatic, normocephalic - Eye Eye exam: Present: PERRL, conjuntiva pink, sclera anicteric Pupils: Present: PERRL - Neck Neck exam general surgery: Present: supple, trachea midline. Absent: lymphadenopathy - Respiratory Respiratory exam: Present: CTAB, wheezes (Fine bilateral expiratory wheezes, improving compared to prior days ). Absent: accessory muscle use, rales, rhonchi - Cardiovascular Cardiovascular exam: Present: RRR, +S1, +S2. Absent: diastolic murmur, gallop, rubs, systolic murmur - GI/Abdominal GI/Abdominal exam: Present: normal bowel sounds, soft, no peritoneal signs. Absent: distended, tenderness - Extremities Exam Extremities exam: Present: warm, radial pulses palpable and symmetrical. Absent : calf tenderness, cyanotic, pedal edema - Neurological Exam Neurological exam: Present: CN II-XII intact, oriented X3, no focal deficits. Absent: pronater drift, facial droop, speech deficit - Skin Skin exam: Present: dry, intact - Patient Status Disposition: Home, Self-Care Condition: Fair Overall status at discharge: patient is progressing back to baseline - Discharge Instructions Follow Up With: Shaina Bridges DO [Primary Care Provider] -
== END 2018-03-12 11:53 | disposition home or self-care (01) | DRG 720 ==
LOC: EMEROO 09:34 → 3BNU 09:34
PROVIDERS: ADMIT Nurse Practitioner Family; ATTEND Hospitalist

== ENCOUNTER 2019-08-10 11:37 | Inpatient (IN) ==
[2019-08-10 12:22] LABS: ABG Base Excess 21 mEq/L (-2 to 3); ABG HCO3 58 mEq/L (21-27); ABG Oxygen Saturation 97 % (95-98); ABG PCO2 135 mmHg (35-45); ABG PH 7.24 pH Units (7.32-7.45); ABG PO2 118 mmHg (85-104); ABG TCO2 > 50 mEq/L (20-26)
[2019-08-10 12:22] LABS: Basophils # 0.1 K/mcL (0.0-0.2); Basophils % 0.6 %; Eosinophils % 0.3 %; Hemoglobin 13.6 g/dL (12.9-16.9); Immature Granulocytes % 0.2 % (0-4); Lymphocytes % 11.6 %; Mean Corpuscular HGB Conc 29.6 g/dL (31.6-35.5); Mean Corpuscular Hemoglobin 29.6 pg (28.0-33.3); Mean Corpuscular Volume 100.2 fL (83.0-100.0); Mean Platelet Volume 10.7 fL (9.4-12.4); Monocytes # 0.4 K/mcL (0.0-1.3); Monocytes % 4.8 %; Neutrophils # 7.3 K/mcL (1.6-8.9); Platelet Count 152 K/mcL (140-400); Red Blood Count 4.59 M/mcL (4.19-5.50); Segmented Neutrophils % 82.5 %; White Blood Count 8.8 K/mcL (4.3-11.1)
[2019-08-10 12:29] LABS: Prothrombin Time 11.2 Seconds (9.4-12.1)
[2019-08-10] MEDS ORDERED: 0.9 % Sodium Chloride 1,000 ML IVC ONE (12:42)
[2019-08-10] MEDS ORDERED: Ondansetron 4 MG/2 ML VIAL IVP ONE (12:42)
[2019-08-10 13:20] LABS: Alanine Aminotransferase 20 Units/L (7-52); Albumin 4.4 g/dL (3.5-5.7); Albumin/Globulin Ratio 1.7 (1.1-2.2); Alkaline Phosphatase 124 Units/L (34-104); Aspartate Amino Transferase 19 Units/L (13-39); BUN/Creatinine Ratio 37 (6-26); Bilirubin,Total 0.5 mg/dL (0.3-1.0); Blood Urea Nitrogen 20 mg/dL (6-20); Calcium 10.7 mg/dL (8.6-10.3); Chloride 82 mEq/L (98-107); Globulin 2.6 g/dL (2.4-3.5); Glucose 150 mg/dL (70-105); Magnesium 1.8 mg/dL (1.6-2.6); Osmolality,Calculated 289 (280-300); Potassium 4.9 mEq/L (3.5-5.1); Sodium 137 mEq/L (136-145); Troponin I < 0.03 ng/mL (< 0.04); eGFR For African Americans > 60 (> 60); eGFR For Non-African Americans > 60 (> 60)
[2019-08-10 13:33] LABS: Carbon Dioxide > 45 mEq/L (23-29)
[2019-08-10 14:04] LABS: Bilirubin,Urine Negative (Negative); Blood,Urine Small (Negative); Clarity,Urine Clear (Clear); Color,Urine Yellow (Yellow); Glucose,Urine (UA) Normal (Normal); Ketones,Urine 15 mg/dL (Negative); Leukocyte Esterase,Urine Negative (Negative); Nitrite,Urine Negative (Negative); PH,Urine 5.5 pH Units (5.0-8.0); Protein,Urine 30 mg/dL (Neg-Trace); Specific Gravity,Urine 1.025 (1.010-1.025); Urobilinogen,Urine Normal (Normal)
[2019-08-10 14:07] LABS: Bacteria,Urine None Seen per hpf (None-Few); Hyaline Casts,Urine None Seen per lpf (None-Few); RBC,Urine 0-3 per hpf (0-3); Squamous Epithelial Cell,Urine Moderate per lpf (None-Few)
[2019-08-10] MEDS ORDERED: Naloxone 0.4 MG/ML INJ IVP PRN (14:08)
[2019-08-10 14:21] LABS: Amphetamine Screen,Urine Negative ng/mL (Cutoff=1000); Barbiturate Screen,Urine Negative ng/mL (Cutoff=200); Benzodiazepines Screen,Urine Negative ng/mL (Cutoff=200); Cannabinoid Screen,Urine Positive ng/mL (Cutoff = 50); Cocaine Screen,Urine Negative ng/mL (Cutoff= 300); Opiate Screen,Urine Negative ng/mL (Cutoff=300); Phencyclidine Screen,Urine Negative ng/mL (Cutoff=25)
[2019-08-10] MEDS: Ipratropium/Albuterol Neb 3 ML IH SCH ×2 (16:12→19:59)
[2019-08-10] MEDS: *HR* Heparin 5,000 UNIT/ML VIAL SQ SCH ×2 (17:12→23:39)
[2019-08-10] MEDS: MethylPREDNISolone 40 MG/ML VIAL IVP SCH ×2 (17:13→23:39)
[2019-08-10 17:44] LABS: ABG Base Excess 24 mEq/L (-2 to 3); ABG HCO3 55 mEq/L (21-27); ABG Oxygen Saturation 94 % (95-98); ABG PCO2 89 mmHg (35-45); ABG PO2 77 mmHg (85-104); ABG TCO2 > 50 mEq/L (20-26); Blood Gas VT 500 cc
[2019-08-10] MEDS ORDERED: *HR* LORazepam 2 MG/ML VIAL IVP ONE (18:54)
[2019-08-11] MEDS: Ipratropium/Albuterol Neb 3 ML IH SCH ×7 (00:06→23:08)
[2019-08-11 04:31] LABS: Basophils % 0.5 %; Hematocrit 42.5 % (37.5-50.1); Immature Granulocytes % 0.3 % (0-4); Lymphocytes # 0.7 K/mcL (0.6-4.6); Lymphocytes % 12.3 %; Mean Corpuscular HGB Conc 30.6 g/dL (31.6-35.5); Mean Corpuscular Hemoglobin 29.4 pg (28.0-33.3); Mean Corpuscular Volume 96.2 fL (83.0-100.0); Mean Platelet Volume 10.6 fL (9.4-12.4); Monocytes # 0.1 K/mcL (0.0-1.3); Monocytes % 1.2 %; Platelet Count 158 K/mcL (140-400); Red Blood Count 4.42 M/mcL (4.19-5.50); Red Cell Distribution Width 11.9 % (11.5-14.5); Segmented Neutrophils % 85.7 %; White Blood Count 5.8 K/mcL (4.3-11.1)
[2019-08-11 04:50] LABS: BUN/Creatinine Ratio 33 (6-26); Blood Urea Nitrogen 19 mg/dL (6-20); Calcium 10.4 mg/dL (8.6-10.3); Carbon Dioxide > 45 mEq/L (23-29); Chloride 82 mEq/L (98-107); Glucose 121 mg/dL (70-105); Osmolality,Calculated 286 (280-300); Potassium 4.9 mEq/L (3.5-5.1); Sodium 136 mEq/L (136-145); eGFR For African Americans > 60 (> 60); eGFR For Non-African Americans > 60 (> 60)
[2019-08-11 05:02] LABS: ABG Base Excess 23 mEq/L (-2 to 3); ABG HCO3 54 mEq/L (21-27); ABG Oxygen Saturation 97 % (95-98); ABG PCO2 84 mmHg (35-45); ABG PH 7.42 pH Units (7.32-7.45); ABG PO2 102 mmHg (85-104); ABG TCO2 > 50 mEq/L (20-26); Blood Gas Modality AVAPS; Blood Gas VT 500 cc
[2019-08-11] MEDS: *HR* Heparin 5,000 UNIT/ML VIAL SQ SCH ×3 (08:34→23:25)
[2019-08-11] MEDS: MethylPREDNISolone 40 MG/ML VIAL IVP SCH ×3 (08:35→23:25)
[2019-08-11] MEDS ORDERED: Doxycycline 100 MG CAPSULE PO SCH (10:15)
[2019-08-11] MEDS: Cholecalciferol (D-3) 1,000 UNIT (25MCG) TABLET PO SCH (12:31)
[2019-08-11 19:26] LABS: Adenovirus Not Detected (Not Detect); Bordetella Pertussis Not Detected (Not Detect); Chlamydophila pneumoniae Not Detected (Not Detect); Coronavirus 229E Not Detected (Not Detect); Coronavirus HKU1 Not Detected (Not Detect); Coronavirus NL63 Not Detected (Not Detect); Coronavirus OC43 Not Detected (Not Detect); Human Metapneumovirus Not Detected (Not Detect); Human Rhinovirus/Enterovirus Not Detected (Not Detect); Influenza A Subtype 2009 H1 Not Detected (Not Detect); Influenza A Untypeable Not Detected (Not Detect); Influenza B Not Detected (Not Detect); Mycoplasma pneumoniae Not Detected (Not Detect); Parainfluenza Virus 1 Not Detected (Not Detect); Parainfluenza Virus 2 Not Detected (Not Detect); Parainfluenza Virus 3 Not Detected (Not Detect); Parainfluenza Virus 4 Not Detected (Not Detect); Respiratory Syncytial Virus Not Detected (Not Detect)
[2019-08-11] MEDS: Primidone 50 MG TABLET PO SCH (20:04)
[2019-08-12 01:20] LABS: Basophils % 0.1 %; Immature Granulocytes % 0.3 % (0-4); Lymphocytes # 0.8 K/mcL (0.6-4.6); Lymphocytes % 10.1 %; Mean Corpuscular HGB Conc 31.6 g/dL (31.6-35.5); Mean Corpuscular Hemoglobin 29.5 pg (28.0-33.3); Mean Corpuscular Volume 93.4 fL (83.0-100.0); Mean Platelet Volume 11.1 fL (9.4-12.4); Monocytes # 0.5 K/mcL (0.0-1.3); Monocytes % 6.2 %; Neutrophils # 6.2 K/mcL (1.6-8.9); Platelet Count 153 K/mcL (140-400); Red Blood Count 4.07 M/mcL (4.19-5.50); Segmented Neutrophils % 83.3 %; White Blood Count 7.5 K/mcL (4.3-11.1)
[2019-08-12 01:22] LABS: BUN/Creatinine Ratio 32 (6-26); Blood Urea Nitrogen 26 mg/dL (6-20); Calcium 9.5 mg/dL (8.6-10.3); Carbon Dioxide > 45 mEq/L (23-29); Chloride 89 mEq/L (98-107); Glucose 143 mg/dL (70-105); Osmolality,Calculated 289 (280-300); Potassium 4.6 mEq/L (3.5-5.1); Sodium 136 mEq/L (136-145); eGFR For African Americans > 60 (> 60); eGFR For Non-African Americans > 60 (> 60)
[2019-08-12] MEDS: Ipratropium/Albuterol Neb 3 ML IH SCH ×6 (04:15→23:34)
[2019-08-12] MEDS: Doxycycline 100 MG in 0.9 % Sodium Chloride Mini Bag 100 ML IVPB SCH ×2 (06:06→16:33)
[2019-08-12] MEDS: *HR* Heparin 5,000 UNIT/ML VIAL SQ SCH ×2 (08:02→16:33)
[2019-08-12] MEDS: Primidone 50 MG TABLET PO SCH ×2 (08:02→20:18)
[2019-08-12] MEDS: Cholecalciferol (D-3) 1,000 UNIT (25MCG) TABLET PO SCH (08:02)
[2019-08-12] MEDS: MethylPREDNISolone 40 MG/ML VIAL IVP SCH ×3 (08:02→23:59)
[2019-08-12 10:35] LABS: ABG Base Excess 20 mEq/L (-2 to 3); ABG HCO3 49 mEq/L (21-27); ABG Oxygen Saturation 90 % (95-98); ABG PCO2 71 mmHg (35-45); ABG PH 7.45 pH Units (7.32-7.45); ABG PO2 59 mmHg (85-104); ABG TCO2 > 50 mEq/L (20-26)
[2019-08-13 01:30] LABS: Basophils % 0.1 %; Hematocrit 38.4 % (37.5-50.1); Hemoglobin 12.4 g/dL (12.9-16.9); Immature Granulocytes % 0.4 % (0-4); Lymphocytes # 1.2 K/mcL (0.6-4.6); Lymphocytes % 12.1 %; Mean Corpuscular HGB Conc 32.3 g/dL (31.6-35.5); Mean Corpuscular Hemoglobin 30.1 pg (28.0-33.3); Mean Corpuscular Volume 93.2 fL (83.0-100.0); Monocytes # 0.6 K/mcL (0.0-1.3); Monocytes % 5.9 %; Neutrophils # 8.4 K/mcL (1.6-8.9); Platelet Count 177 K/mcL (140-400); Red Blood Count 4.12 M/mcL (4.19-5.50); Red Cell Distribution Width 12.2 % (11.5-14.5); Segmented Neutrophils % 81.5 %; White Blood Count 10.3 K/mcL (4.3-11.1)
[2019-08-13 01:47] LABS: BUN/Creatinine Ratio 34 (6-26); Blood Urea Nitrogen 20 mg/dL (6-20); Calcium 9.3 mg/dL (8.6-10.3); Carbon Dioxide 41 mEq/L (23-29); Chloride 89 mEq/L (98-107); Glucose 162 mg/dL (70-105); Osmolality,Calculated 286 (280-300); Potassium 4.3 mEq/L (3.5-5.1); Sodium 135 mEq/L (136-145); eGFR For African Americans > 60 (> 60); eGFR For Non-African Americans > 60 (> 60)
[2019-08-13] MEDS: Ipratropium/Albuterol Neb 3 ML IH SCH ×2 (03:40→07:25)
[2019-08-13] MEDS: Doxycycline 100 MG in 0.9 % Sodium Chloride Mini Bag 100 ML IVPB SCH (06:25)
[2019-08-13 07:17] VITALS: BP 114/70
[2019-08-13] MEDS: Primidone 50 MG TABLET PO SCH (07:45)
[2019-08-13] MEDS: MethylPREDNISolone 40 MG/ML VIAL IVP SCH (07:46)
[2019-08-13] MEDS: Cholecalciferol (D-3) 1,000 UNIT (25MCG) TABLET PO SCH (07:46)
[2019-08-13] MEDS: *HR* Heparin 5,000 UNIT/ML VIAL SQ SCH ×2 (07:48)
[2019-08-16 15:36] LABS: A1A SZ Specimen WHOLE BLOOD; Alpha-1-Antitrypsin S Allele NEGATIVE; Alpha-1-Antitrypsin Z Allele NEGATIVE
[2019-08-17 09:35] LABS: Alpha-1-Antitrypsin 155 mg/dL (90-200)
== END 2019-08-13 10:05 | disposition home or self-care (01) | DRG 140 ==
LOC: EMEROOARM 11:37 → 2NNU 13:56 → SUATTDRO 13:56 → 2NNU 15:23
PROVIDERS: ADMIT Internal Medicine; ATTEND Internal Medicine